=== PATIENT | male | born 1950 | race Caucasian/White ===

== ENCOUNTER 2017-01-23 20:02 | Inpatient (IN) | payer MEDICARE ==
[~2017-01-23] VITALS: Ht 180.3 cm; Wt 62.8 kg
[~2017-01-23 20:02] MED LIST: AMIO200T PO; DIVA500T3 PO; METF1000 PO; METO1TAB43 PO; METO1TAB9 PO; OXYB5TAB PO; PRAV40TA2 PO; QUET400T PO; RISP3TAB2 PO; SITA50 PO
[2017-01-23 20:15] VITALS: BP 117/65; PULSE 115; RESP 20; TEMP 98.6; O2SAT 99
[2017-01-23 20:30] VITALS: BP 135/69; PULSE 116; RESP 24; TEMP 98; O2SAT 99
--- NOTE | 2017-01-23 20:41 | PD ---
HPI Chief Complaint: Cardiac Complaint Time Seen by Provider: 20:33 Travel History International Travel<30 days: No Contact w/Intl Traveler<30days: No Traveled to known affect area: No History of Present Illness HPI 66 year-old male presents to the emergency department by EMS transport after bystander 911 call. Patient here reports hearing voices and hearing the devil. Patient does not not report any specific directives from the voices. Patient has history of schizoaffective disorder, diabetes, tobaccoism, alcohol use and seizure disorder. Patient here is currently voicing no concerns or complaints requesting a diet Coke. In triage patient was noted to have a rapid irregular heartbeat with no identified known medical history. Patient rates his chest pain 0-2/10 in intensity but denies it being present at this time. PFSH Past Medical History Narrative Medical Schizoaffective disorder hypertension diabetes bipolar disorder seizure alcohol use tobacco use; nursing notes reviewed Blood Disorders: No Bipolar Disorder: Yes ("WAY IN THE PAST - BUT MY [place] IN GOD WILL HEAL ME") Anxiety: Yes Depression: Yes Heart Rhythm Problems: No Cancer: No Cardiovascular Problems: No High Cholesterol: No Chest Pain: No Congestive Heart Failure: No Diabetes: Yes (NON INSULIN DEPENDENT) Patient Takes Glucophage: No Diminished Hearing: Yes (LEFT IS DEAF BUT HE BELIEVES [facility]IS[place] IS ABOUT TO HEAL IT SOON) Gastrointestinal Disorders: No Genitourinary: No Hypertension: Yes Immune Disorder: No Musculoskeletal: No Neurologic: No Psychiatric: Yes Reproductive: No Respiratory: No Schizophrenia: Yes (SAYS "YES BUT I DON'T THINK IT'S MUCH. 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") Substance Use: No Allergies-Medications (Allergen,Severity, Reaction): Coded Allergies: haloperidol (Unverified Allergy, Severe, 01/23/17) UNKNOWN hydroxyzine (Unverified Allergy, Severe, 01/23/17) UNKNOWN Reported Meds & Prescriptions Reported Meds & Active Scripts Active Metoprolol Succinate ER 24 HR (Metoprolol Succinate) 50 Mg Tab 100 Mg PO DAILY 30 Days Amiodarone (Amiodarone HCl) 200 Mg Tab 200 Mg PO DAILY 30 Days Amiodarone (Amiodarone HCl) 200 Mg Tab 400 Mg PO Q12HR 5 Days Reported Risperidone 3 Mg Tab 3 Mg PO Q12HR Quetiapine (Quetiapine Fumarate) 400 Mg Tab 400 Mg PO HS Pravastatin 40 Mg Tab 40 Mg PO DAILY Oxybutynin ER 24 HR (Oxybutynin Chloride) 5 Mg Tab 5 Mg PO DAILY Metoprolol Succinate ER 24 HR (Metoprolol Succinate) 100 Mg Tab 150 Mg PO DAILY Metformin (Metformin HCl) 1,000 Mg Tab 1,000 Mg PO BIDPC With meals Januvia (Sitagliptin Phosphate) 50 Mg Tab 50 Mg PO DAILY Divalproex ER (Divalproex Sodium) 500 Mg Tab 1,000 Mg PO DAILY Review of Systems Except as stated in HPI: all other systems reviewed are Neg General / Constitutional: No: Fever HENT: No: Congestion Cardiovascular: Positive: Chest Pain or Discomfort (in the twinkle of an eye pain "the devil") Respiratory: No: Shortness of Breath Gastrointestinal: No: Vomiting, Abdominal Pain Genitourinary: No: Flank Pain Musculoskeletal: No: Pain Psychiatric: Positive: Disorder of Thought Physical Exam Narrative GENERAL: Well-developed disheveled male in no acute distress no respiratory distress SKIN: Warm and dry. HEAD: Normocephalic. Atraumatic no scalp soft tissue swelling abrasion or tenderness no bony step-off. EYES: No scleral icterus. No injection or drainage. NECK: Supple, trachea midline. No JVD or lymphadenopathy. CARDIOVASCULAR: Increased Regular rate and rhythm without murmurs, gallops, or rubs. RESPIRATORY: Breath sounds equal bilaterally. No accessory muscle use. GASTROINTESTINAL: Abdomen soft, non-tender, nondistended. MUSCULOSKELETAL: No cyanosis, or edema. BACK: Nontender without obvious deformity. No CVA tenderness. Data Data Last Documented VS Vital Signs Date Time Temp Pulse Resp B/P (MAP) Pulse Ox O2 Delivery O2 Flow Rate FiO2 01/23/17 21:08 100 18 137/78 (97) 98 Room Air 01/23/17 20:30 98.0 Orders Orders Complete Blood Count With Diff (01/23/17 20:33) Comprehensive Metabolic Panel (01/23/17 20:33) Thyroid Stimulating Hormone (01/23/17 20:33) Urinalysis - C+S If Indicated (01/23/17 20:33) Electrocardiogram (01/23/17 20:33) Oximetry (01/23/17 20:33) Iv Access Insert/Monitor (01/23/17 20:33) Ecg Monitoring (01/23/17 20:33) Psych Screen (01/23/17 20:33) Blood Glucose (01/23/17 20:33) Drug Screen, Random Urine (01/23/17 20:33) Alcohol (Ethanol) (01/23/17 20:33) Salicylates (Aspirin) (01/23/17 20:33) Tylenol (Acetaminophen) (01/23/17 20:33) Troponin I (01/23/17 20:33) Ckmb (Isoenzyme) Profile (01/23/17 20:33) Magnesium (Mg) (01/23/17 20:33) Chest, Single Ap (01/23/17 ) Labs Laboratory Tests Test 01/23/17 20:45 01/23/17 22:45 White Blood Count 8.6 TH/MM3 Red Blood Count 3.90 MIL/MM3 Hemoglobin 13.1 GM/DL Hematocrit 37.9 % Mean Corpuscular Volume 97.4 FL Mean Corpuscular Hemoglobin 33.5 PG Mean Corpuscular Hemoglobin Concent 34.4 % Red Cell Distribution Width 13.9 % Platelet Count 213 TH/MM3 Mean Platelet Volume 9.3 FL Neutrophils (%) (Auto) 67.9 % Lymphocytes (%) (Auto) 21.8 % Monocytes (%) (Auto) 8.5 % Eosinophils (%) (Auto) 1.4 % Basophils (%) (Auto) 0.4 % Neutrophils # (Auto) 5.8 TH/MM3 Lymphocytes # (Auto) 1.9 TH/MM3 Monocytes # (Auto) 0.7 TH/MM3 Eosinophils # (Auto) 0.1 TH/MM3 Basophils # (Auto) 0.0 TH/MM3 CBC Comment DIFF FINAL Differential Comment Blood Urea Nitrogen 19 MG/DL Creatinine 1.00 MG/DL Random Glucose 149 MG/DL Total Protein 7.5 GM/DL Albumin 3.7 GM/DL Calcium Level 9.7 MG/DL Magnesium Level 1.8 MG/DL Alkaline Phosphatase 81 U/L Aspartate Amino Transf (AST/SGOT) 5 U/L Alanine Aminotransferase (ALT/SGPT) 14 U/L Total Bilirubin 0.3 MG/DL Sodium Level 139 MEQ/L Potassium Level 4.1 MEQ/L Chloride Level 107 MEQ/L Carbon Dioxide Level 24.1 MEQ/L Anion Gap 8 MEQ/L Estimat Glomerular Filtration Rate 74 ML/MIN Total Creatine Kinase 51 U/L Troponin I LESS THAN 0.02 NG/ML Thyroid Stimulating Hormone 3rd Gen 1.460 uIU/ML Salicylates Level 4.7 MG/DL Acetaminophen Level LESS THAN 2.0 MCG/ML Ethyl Alcohol Level LESS THAN 3 MG/DL MDM Medical Decision Making Medical Screen Exam Complete: Yes Emergency Medical Condition: Yes Medical Record Reviewed: Yes Interpretation(s) EKG: Sinus tachycardia rate [address] elevation or injury pattern Last Impressions Chest X-Ray 01/23/17 0000 Signed Impressions: Service Date/Time: Monday, January 23, 2017 21:50 - CONCLUSION: No acute disease. Jon Pablo MD CBC & BMP Diagram 01/23/17 20:45 Total Protein 7.5, Albumin 3.7, Calcium Level 9.7, Magnesium Level 1.8, Alkaline Phosphatase 81, Aspartate Amino Transf (AST/SGOT) 5 L, Alanine Aminotransferase (ALT/SGPT) 14, Total Bilirubin 0.3 Vital Signs Date Time Temp Pulse Resp B/P (MAP) Pulse Ox O2 Delivery O2 Flow Rate FiO2 01/23/17 21:08 100 18 137/78 (97) 98 Room Air 01/23/17 20:58 99 Room Air 01/23/17 20:30 98.0 116 24 135/69 (91) 99 Room Air 01/23/17 20:15 98.6 115 20 117/65 (82) 99 tsh: 1.460 Troponin I: less than 0.02, not elevated Differential Diagnosis Mood disorder bipolar disorder schizoaffective disorder atypical chest pain [facility] [place] electrolyte disturbance glucose disturbance Narrative Course Patient placed on chair and pulse oximeter with IV access obtained EKG performed which reveals sinus tachycardia with occasional PVC with no acute ST elevation or injury pattern or ectopy noted Patient with visual and auditory hallucinations concerned about seeing devil and the devil being in his chest; patient with history of schizoaffective disorder by review of medical record; Epps act signed by id Lab values grossly normal range patient's vital signs have improved patient given bolus of normal saline patient is medically cleared for psych screen Physician Communication Physician Communication medically cleared for psych evaluation Diagnosis Primary Impression: Auditory hallucinations Additional Impression: H/O schizophrenia Estela Noyola MD Jan 23, 2017 20:41
[2017-01-23 20:58] VITALS: O2SAT 99
[2017-01-23 21:08] VITALS: BP 137/78; PULSE 100; RESP 18; O2SAT 98
[2017-01-23 21:23] LABS: AUTOMATED NEUTROPHIL # 5.8 TH/MM3 (1.8-7.7); BASOPHIL % 0.4 % (0.0-2.0); EOSINOPHIL # 0.1 TH/MM3 (0-0.4); EOSINOPHIL % 1.4 % (0.0-4.0); HEMATOCRIT 37.9 % (39.0-51.0); HEMO FLAGS DIFF FINAL; LYMPH % 21.8 % (9.0-44.0); LYMPHOCYTE # 1.9 TH/MM3 (1.0-4.8); MEAN CELL VOLUME 97.4 FL (80.0-100.0); MEAN CORPUSCULAR HEMOGLOBIN 33.5 PG (27.0-34.0); MEAN CORPUSCULAR HGB CONC 34.4 % (32.0-36.0); MONO % 8.5 % (0.0-8.0); NEUT % 67.9 % (16.0-70.0); PLATELET COUNT 213 TH/MM3 (150-450); RED CELL DISTRIBUTION WIDTH 13.9 % (11.6-17.2); WHITE BLOOD COUNT 8.6 TH/MM3 (4.0-11.0)
[2017-01-23 21:48] LABS: ALT (GPT) 14 U/L (12-78); ANION GAP 8 MEQ/L (5-15); AST (GOT) 5 U/L (15-37); BICARBONATE 24.1 MEQ/L (21.0-32.0); BLOOD UREA NITROGEN 19 MG/DL (7-18); CHLORIDE 107 MEQ/L (98-107); GLOMERULAR FILTRATION RATE 74 ML/MIN (>89); MAGNESIUM 1.8 MG/DL (1.5-2.5); POTASSIUM 4.1 MEQ/L (3.5-5.1); SODIUM (NA) 139 MEQ/L (136-145)
[2017-01-23 21:49] LABS: ALCOHOL LESS THAN 3 MG/DL (0-5)
[2017-01-23 21:57] LABS: ALKALINE PHOSPHATASE 81 U/L (45-117); TOTAL BILIRUBIN ADULT 0.3 MG/DL (0.2-1.0)
[2017-01-23 21:58] LABS: ACETAMINOPHEN LESS THAN 2.0 MCG/ML (10.0-30.0); CREATINE KINASE 51 U/L (39-308)
--- NOTE | 2017-01-23 22:40 | RADRPT ---
EXAM DATE/TIME: 01/23/2017 21:50 [facility] COMPARISON: No previous studies available for comparison. INDICATIONS : Chest pain. MEDICAL HISTORY : None. SURGICAL HISTORY : None. ENCOUNTER: Initial ACUITY: 1 day PAIN SCORE: 6/10 LOCATION: Bilateral chest FINDINGS: The heart size is normal. The lungs are clear. There is an old right fifth rib fracture. No effusion is seen. CONCLUSION: No acute disease. Jon Pablo MD on January 23, 2017 at 22:37 Board Certified Radiologist. This report was verified electronically.
[2017-01-23] MEDS ORDERED: SODIUM CHLOR 0.9% 1000 ML INJ 1,000 ML IV ONE (23:00)
[2017-01-23 23:04] LABS: BLOOD, URINE NEG (NEG); COMMENT (UR) CULT NOT INDICATED; CULTURE IF INDICATED CULT NOT INDICATED; GLUCOSE,URINE 150 mg/dL (NEG); HYALINE CAST, URINE 1 /lpf (RARE); KETONE, URINE NEG (NEG); MUCUS URINE FEW /lpf (OCC); NITRITE,URINE NEG (NEG); PH, URINE 5.5 (5.0-8.5); URINE COLOR YELLOW (YELLW/STRAW)
[2017-01-23 23:38] VITALS: BP 144/71; PULSE 101; RESP 20; TEMP 97.8; O2SAT 96
[2017-01-24 02:01] VITALS: BP 140/63; PULSE 90; RESP 18; O2SAT 100
[2017-01-24 06:00] VITALS: BP 106/71; PULSE 99; RESP 17; O2SAT 100
[2017-01-24 12:13] VITALS: BP 130/67; PULSE 85; RESP 18; O2SAT 99
[2017-01-24] MEDS ORDERED: ARIP2 PO (15:24)
[2017-01-24] MEDS ORDERED: ACETAMINOPHEN 325 MG TAB PO PRN (15:30)
[2017-01-24] MEDS ORDERED: ALUMINUM/MAGNESIUM/SIMETH 30 ML CUP PO PRN (15:30)
[2017-01-24] MEDS ORDERED: diphenhydrAMINE HCL 50 MG CAP PO PRN (15:30)
[2017-01-24] MEDS ORDERED: MAGNESIUM HYDROXIDE SUSP 30 ML CUP PO PRN (15:30)
[2017-01-24] MEDS ORDERED: diphenhydrAMINE HCL 50 MG/ML VIAL IM PRN (15:30)
[2017-01-24] MEDS ORDERED: LORazepam 1 MG TAB PO PRN (15:30)
[2017-01-24] MEDS ORDERED: LORazepam 2 MG/ML VIAL IM PRN (15:30)
--- NOTE | 2017-01-24 15:37 | HHI.HP ---
Provisional Diagnosis Admission Date Jan 24, 2017 at 15:19 [place] I. Schizoaffective disorder, depressed type Certification of Person's Competence To Provide Express and Informed Consent I have personally examined Pritesh Mccracken , a person being served at [facility] on, Jan 24, 2017 15:26. Express and informed consent means consent voluntarily given in writing, by a competent person, after sufficient explanation and disclosure of the subject matter involved to enable the person to make a knowing and willful decision without any element of force, fraud, deceit, duress, or other form of constraint or coercion. This person is 18 years of age or older, is not now known to be incompetent to consent to treatment with a guardian advocate, and does not have a health care surrogate or proxy currently making medical treatment decisions. I have found this person to be one of the following: [] Competent to provide express and informed consent, as defined above, for voluntary admission to this facility and is competent to provide express and informed consent for treatment. He/she has the consistent capacity to make well reasoned, willful, and knowing decisions concerning his or her medical or mental health treatment. The person fully and consistently understands the purpose of the admission for examination/placement and is fully capable of personally exercising all rights assured [place] [X] Incompetent to provide express and informed consent to voluntary admission, and this is incompetent to provide express and informed consent to treatment. The person must be transferred to involuntary status and a petition for a guardian advocate filed with the Circuit Court. [] Refusing to provide express and informed consent to voluntary admission but is competent to provide express and informed consent for treatment. The person must be discharged or transferred to involuntary status. Form shall be completed within 24 hours of a person's arrival at the receiving facility and filed in the clinical record of each person: 1. Admitted on a voluntary basis 2. Permitted to provide express and informed consent to his/her own treatment 3. Allowed to transfer from involuntary to voluntary status 4. Prior to permitting a person to consent to his or her own treatment after having been previously found incompetent to consent to treatment. History of Present Illness Capacity: Lacks Capacity HPI 66-year-old male presents under a Epps act for reported auditory hallucinations , visual hallucinations, delusional thinking, multiple medical problems and inability to care for self. According to the Epps act, the patient has been hearing voices and feels the devil is in his chest. He describes both auditory and visual hallucinations, although is disorganized, currently responding to internal stimuli, and therefore is a poor historian. He was Epps acted by one of our own emergency department attending physicians. Upon interview, the patient admits to being very anxious. He has a difficult time answering questions because he is distracted by at least auditory hallucinations if not also visual hallucinations. He admits to having the devil inside of him. He admits to seeing things although he cannot or will not describe what he sees. He admits to auditory hallucinations, although he is again unable to describe details of what he hears. He continues to exhibit loose associations. He is able to name some of his psychotropic and nonpsychotropic medicines and admits that he has not been taking his medicines as prescribed. He has a history of multiple medical problems and therefore his lack of self-care is imminently jeopardizing his physical health. He is unable to answer questions about suicide and homicide at this time. His toxicology screen is noted to be negative. Review of Systems Psychiatric: COMPLAINS OF: Anxiety, Confusion, Depression, Hallucinations, Delusions Except as stated in HPI: all other systems reviewed are Neg Past Psych History Psychological trauma history Previously diagnosed with schizoaffective disorder. Unable to determine any history of psychological trauma. Violence risk - others (6 mos) Moderate to high. Violence risk - self (6 mos) Moderate to high. Substance Abuse History Drugs/Alcohol past 12 months Denied. Past Family Social History Coded Allergies: haloperidol (Unverified Allergy, Severe, 01/23/17) UNKNOWN hydroxyzine (Unverified Allergy, Severe, 01/23/17) UNKNOWN Active Scripts Aripiprazole (Abilify) 2 Mg Tab, 2 MG PO DAILY, #30 TAB 0 Refills Prov:Prakash Carranza MD 01/24/17 Metoprolol Succinate ER 24 HR (Metoprolol Succinate ER 24 HR) 50 Mg Tab, 100 MG PO DAILY for heart rhythm for 30 Days, TAB Prov:Chyna Ann 01/28/16 Amiodarone (Amiodarone) 200 Mg Tab, 200 MG PO DAILY for heart rhythm for 30 Days , TAB Prov:Chyna Ann 01/28/16 Amiodarone (Amiodarone) 200 Mg Tab, 400 MG PO Q12HR for heart rhythm for 5 Days , TAB Prov:Chyna Ann 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 01/28/16 Reported Medications Risperidone (Risperidone) 3 Mg Tab, 3 MG PO Q12HR, TAB 0 Refills 01/27/16 Quetiapine (Quetiapine) 400 Mg Tab, 400 MG PO HS, TAB 0 Refills 01/27/16 Pravastatin (Pravastatin) 40 Mg Tab, 40 MG PO DAILY for Cholesterol Management, TAB 0 Refills 01/27/16 Oxybutynin ER 24 HR (Oxybutynin ER 24 HR) 5 Mg Tab, 5 MG PO DAILY for Overactive Bladder, TAB 0 Refills 01/27/16 Metoprolol Succinate ER 24 HR (Metoprolol Succinate ER 24 HR) 100 Mg Tab, 150 MG PO DAILY, TAB 0 Refills 01/27/16 Metformin (Metformin) 1,000 Mg Tab, 1000 MG PO BIDPC for Blood Sugar Management , TAB 0 Refills With meals 01/27/16 Sitagliptin (Januvia) 50 Mg Tab, 50 MG PO DAILY for Blood Sugar Management, TAB 0 Refills 01/27/16 Divalproex ER (Divalproex ER) 500 Mg Tab, 1000 MG PO DAILY for Control Seizures , TAB 0 Refills 01/27/16 Current Medications Medications (Trade) Dose Ordered Sig/Sanna Route Start Time Stop Time Status Last Admin (Ativan) 1 mg Q6H PRN PO 01/24/17 15:30 UNV (Ativan Inj) 1 mg Q6H PRN IM 01/24/17 15:30 UNV (Benadryl) 50 mg HS PRN PO 01/24/17 15:30 UNV (Benadryl Inj) 50 mg HS PRN IM 01/24/17 15:30 UNV (Tylenol) 650 mg Q4H PRN PO 01/24/17 15:30 UNV (Milk Of Magnesia Liq) 30 ml DAILY PRN PO 01/24/17 15:30 UNV (Mag-Al Plus Susp Liq) 30 ml Q6H PRN PO 01/24/17 15:30 UNV Family Psych History Unknown family psychiatric history. Patient is a poor historian. Social History Patient currently describes himself as homeless. He is dirty, disheveled, very thin and shaky. He is denying any drug or alcohol use. He is obviously unemployed. He is obviously unable to care for himself. Patient does apparently have family members who do not feel capable of caring for him. Patient's Strengths (min. 2) Verbal has access to healthcare. Physical Exam GENERAL: SKIN: Warm and dry. HEAD: Normocephalic. EYES: No scleral icterus. No injection or drainage. NECK: Supple, trachea midline. No JVD or lymphadenopathy. CARDIOVASCULAR: Regular rate and rhythm without murmurs, gallops, or rubs. RESPIRATORY: Breath sounds equal bilaterally. No accessory muscle use. GASTROINTESTINAL: Abdomen soft, non-tender, nondistended. MUSCULOSKELETAL: No cyanosis, or edema. BACK: Nontender without obvious deformity. No CVA tenderness. Vital Signs Vital Signs Date Time Temp Pulse Resp B/P (MAP) Pulse Ox O2 Delivery O2 Flow Rate FiO2 01/24/17 12:13 85 18 130/67 (88) 99 Room Air 01/23/17 23:38 97.8 Lab Results Test 01/23/17 20:45 01/23/17 22:45 White Blood Count 8.6 TH/MM3 Red Blood Count 3.90 MIL/MM3 Hemoglobin 13.1 GM/DL Hematocrit 37.9 % Mean Corpuscular Volume 97.4 FL Mean Corpuscular Hemoglobin 33.5 PG Mean Corpuscular Hemoglobin Concent 34.4 % Red Cell Distribution Width 13.9 % Platelet Count 213 TH/MM3 Mean Platelet Volume 9.3 FL Neutrophils (%) (Auto) 67.9 % Lymphocytes (%) (Auto) 21.8 % Monocytes (%) (Auto) 8.5 % Eosinophils (%) (Auto) 1.4 % Basophils (%) (Auto) 0.4 % Neutrophils # (Auto) 5.8 TH/MM3 Lymphocytes # (Auto) 1.9 TH/MM3 Monocytes # (Auto) 0.7 TH/MM3 Eosinophils # (Auto) 0.1 TH/MM3 Basophils # (Auto) 0.0 TH/MM3 CBC Comment DIFF FINAL Differential Comment Blood Urea Nitrogen 19 MG/DL Creatinine 1.00 MG/DL Random Glucose 149 MG/DL Total Protein 7.5 GM/DL Albumin 3.7 GM/DL Calcium Level 9.7 MG/DL Magnesium Level 1.8 MG/DL Alkaline Phosphatase 81 U/L Aspartate Amino Transf (AST/SGOT) 5 U/L Alanine Aminotransferase (ALT/SGPT) 14 U/L Total Bilirubin 0.3 MG/DL Sodium Level 139 MEQ/L Potassium Level 4.1 MEQ/L Chloride Level 107 MEQ/L Carbon Dioxide Level 24.1 MEQ/L Anion Gap 8 MEQ/L Estimat Glomerular Filtration Rate 74 ML/MIN Total Creatine Kinase 51 U/L Troponin I LESS THAN 0.02 NG/ML Thyroid Stimulating Hormone 3rd Gen 1.460 uIU/ML Salicylates Level 4.7 MG/DL Acetaminophen Level LESS THAN 2.0 MCG/ML Ethyl Alcohol Level LESS THAN 3 MG/DL Urine Color YELLOW Urine Turbidity CLEAR Urine pH 5.5 Urine Specific [place] 1.015 Urine Protein NEG mg/dL Urine Glucose (UA) 150 mg/dL Urine Ketones NEG mg/dL Urine Occult Blood NEG Urine Nitrite NEG Urine Bilirubin NEG Urine Urobilinogen LESS THAN 2.0 MG/DL Urine Leukocyte Esterase NEG Urine RBC 1 /hpf Urine WBC LESS THAN 1 /hpf Urine Hyaline Casts 1 /lpf Urine Mucus FEW /lpf Microscopic Urinalysis Comment CULT NOT INDICATED Urine Opiates Screen NEG Urine Barbiturates Screen NEG Urine Amphetamines Screen NEG Urine Benzodiazepines Screen NEG Urine Cocaine Screen NEG Urine Cannabinoids Screen NEG Mental Status Examination Appearance: Disheveled Consciousness: Highly Distractible Orientation: Person Motor Activity: Abnormal gait Speech: Hesitant Language: Adequate Fund of Knowledge: Inadequate Attention and Concentration: Easily Distracted Memory: Impaired Mood: Sad, Anxious Affect: Flat Thought Process & Associations: Loose associations Thought Content: Bizarre thinking, Hallucinations, Thought blocking, Delusional Hallucination Type: Auditory, Visual Delusion Type: Bizarre, Paranoid Suicidal Ideation: No Suicidal Plan: No Suicidal Intention: No Homicidal Ideation: No Homicidal Plan: No Homicidal Intention: No Insight: Poor Judgment: Poor Assessment & Plan Problem List: (1) Schizoaffective disorder, depressive type ICD Codes: F25.1 - Schizoaffective disorder, depressive type Assessment & Plan Estimated LOS: days. 66-year-old male presents under a Epps act with multiple psychotic symptoms, history of schizoaffective disorder, multiple medical issues, obvious inability to care for self, actively hallucinating, and beyond the families ability to care for him. For these reasons he is being admitted for further evaluation and treatment. This physician has ordered a CBC and comprehensive metabolic panel to determine if any infectious process or metabolic process is causing or contributing to the patient's confusion and psychosis. This physician is also concerned about the patient's prolactin level and this is being drawn as the patient is on 6 mg of Risperdal per day. This physician is also ordering a Depakote level as the patient is supposed to be taking this medicine routinely to help stabilize his mood/mental illness. Furthermore, this physician has ordered a hospitalist consult to assist with the evaluation of the patient's multiple cardiovascular problems. This physician ordered an EKG to determine the patient's cardiac conduction status prior to substantially altering medicines which might adversely affect the electrical system of his heart. This physician ordered thyroid stimulating hormone level, vitamin B-12 level and vitamin D level, as deficiencies in these areas may cause or contribute to the patient's confusion and psychosis. Finally, this physician spoke with the patient's nurse, Gus, regarding the patient's recent behavior. Case management will also be involved to assist with information gathering and disposition planning. Prakash Carranza MD Jan 24, 2017 15:37
[2017-01-24] MEDS: DIVALPROEX SODIUM E.R. 500 MG TAB PO SCH (16:03)
[2017-01-24 17:04] VITALS: BP 129/80; PULSE 99; RESP 16; TEMP 98.2; O2SAT 99
[2017-01-24] MEDS: metFORMIN HCL 500 MG TAB PO SCH (17:05)
--- NOTE | 2017-01-24 18:18 | EKG ---
Date Performed: 01/23/2017 Time Performed: 20:27:22 PTAGE: 66 years EKG: SINUS TACHYCARDIA WITH OCCASIONAL VENTRICULAR PREMATURE COMPLEXES WITH OCCASIONAL SUPRAVENT RICULAR PREMATURE COMPLEXES Compared to previous tracing, ectopy is now present ABNORMAL RHYTHM ECG PREVIOUS TRACING : 01/28/2016 05.44 DOCTOR: Nacho Escalera Interpretating Date/Time 01/24/2017 18:16:38
[2017-01-24] MEDS ORDERED: DEXTROSE 50% IN WATER 50 ML VIAL(D50) IV PUSH PRN (20:45)
[2017-01-24] MEDS ORDERED: GLUCAGON 1 MG/ML VIAL OTHER PRN (20:45)
[2017-01-24] MEDS ORDERED: ARIPiprazole 2 MG TAB PO SCH (21:00)
[2017-01-24] MEDS: QUEtiapine FUMARATE 200 MG TAB PO SCH (21:49)
[2017-01-24] MEDS: AMIODARONE 200 MG TAB PO SCH (22:53)
[2017-01-25] MEDS ORDERED: GLUCAGON 1 MG/ML VIAL OTHER PRN (08:00)
[2017-01-25] MEDS ORDERED: DEXTROSE 50% IN WATER 50 ML VIAL(D50) IV PUSH PRN (08:00)
[2017-01-25] MEDS: INSULIN ASPART SUPPLEMENTAL SCALE SQ SCH ×4 (08:00→21:00)
[2017-01-25] MEDS ORDERED: METOPROLOL SUCCINATE 50 MG EXTENDED RELEASE TAB PO SCH (09:00)
[2017-01-25] MEDS: DIVALPROEX SODIUM E.R. 500 MG TAB PO SCH (09:00)
[2017-01-25] MEDS: PRAVASTATIN SOD 40 MG TAB PO SCH (09:01)
[2017-01-25] MEDS: metFORMIN HCL 500 MG TAB PO SCH ×2 (09:01→18:08)
[2017-01-25] MEDS: TOLTERODINE TARTRATE 2 MG CAP LA PO SCH (09:02)
[2017-01-25] MEDS: AMIODARONE 200 MG TAB PO SCH ×2 (09:02→21:05)
[2017-01-25] MEDS: METOPROLOL SUCCINATE 50 MG EXTENDED RELEASE TAB PO SCH (09:03)
--- NOTE | 2017-01-25 10:30 | HHI.PYPN ---
Subjective Remarks Patient seen in his room with counselor Ladonna and RN. Patient laying very still in bed very poor eye contact with minimal responses to verbal questioning. Appears to be responding to internal stimuli. Is also a significant expression of anxiety and guardedness. Patient refusing to answer questions related to either auditory or visual hallucinations. Patient is initially seen by Dr. Prakash Carranza his initial psych evaluation reviewed and agreed with. I have completed the initial psychiatric template. Dr. Carranza's sign first opinion petition supporting [place] act I agree patient does meet criteria for involuntary psychiatric hospitalization thus will cosign second opinion petition supporting [place] act I have reviewed patient's medication his Depakote level is 69 on admission we'll continue that no change at this time. We will change patient's Abilify to 5 mg in the morning starting at 11 AM today. Continue other medications no change Review of Systems ROS Limitations: Clinical Condition, Altered Mental Status Mental Status Examination Appearance: Disheveled Consciousness: Highly Distractible Orientation: Person Motor Activity: Abnormal gait Speech: Hesitant, Other (marked thought blocking bordering on selectively mute) Language: Other (difficult to ascertain due to patient's thought blocking and minimal verbal response) Fund of Knowledge: Inadequate Attention and Concentration: Easily Distracted Memory: Impaired Mood: Sad, Anxious Affect: Flat Thought Process & Associations: Loose associations Thought Content: Bizarre thinking, Hallucinations, Thought blocking, Delusional Hallucination Type: Auditory, Visual Delusion Type: Bizarre, Paranoid Suicidal Ideation: No Suicidal Plan: No Suicidal Intention: No Homicidal Ideation: No Homicidal Plan: No Homicidal Intention: No Insight: Poor Judgment: Poor Results Labs Test 01/24/17 19:24 Valproic Acid (Depakene) Level 69 MCG/ML Vitals/IOs Vital Signs Date Time Temp Pulse Resp B/P (MAP) Pulse Ox O2 Delivery O2 Flow Rate FiO2 01/24/17 17:04 98.2 99 16 129/80 (96) 99 01/24/17 12:13 Room Air Assessment & Plan Problem List: (1) Schizoaffective disorder, depressive type ICD Codes: F25.1 - Schizoaffective disorder, depressive type Assessment & Plan Estimated LOS: day patient psychotic with significant thought blocking bordering on selectively mute. She medication adjustments above. Dr. Carranza is also initiated first opinion petition supporting [place] act. I agree. Patient meets criteria for involuntary psychiatric hospitalization thus will cosign second opinion petition supporting Epps act Justification for Cont. Inpt. At this time patient will decompensate with placed in a lower level of care Discharge Planning Need further information and input from patient's family about possible placement issues Request HC Surrog/Guard Advoc?: Yes Jon Donato MD Jan 25, 2017 10:30
[2017-01-25 12:27] LABS: AUTOMATED NEUTROPHIL # 4.3 TH/MM3 (1.8-7.7); BASOPHIL % 0.5 % (0.0-2.0); EOSINOPHIL # 0.1 TH/MM3 (0-0.4); EOSINOPHIL % 1.7 % (0.0-4.0); HEMATOCRIT 34.9 % (39.0-51.0); HEMO FLAGS DIFF FINAL; LYMPH % 24.1 % (9.0-44.0); LYMPHOCYTE # 1.6 TH/MM3 (1.0-4.8); MEAN CELL VOLUME 97.2 FL (80.0-100.0); MONO % 9.4 % (0.0-8.0); NEUT % 64.3 % (16.0-70.0); PLATELET COUNT 200 TH/MM3 (150-450); RED BLOOD COUNT 3.59 MIL/MM3 (4.50-5.90); RED CELL DISTRIBUTION WIDTH 13.9 % (11.6-17.2); WHITE BLOOD COUNT 6.6 TH/MM3 (4.0-11.0)
[2017-01-25 12:39] LABS: ANION GAP 5 MEQ/L (5-15); AST (GOT) 6 U/L (15-37); BICARBONATE 26.4 MEQ/L (21.0-32.0); BLOOD UREA NITROGEN 21 MG/DL (7-18); CHLORIDE 107 MEQ/L (98-107); GLOMERULAR FILTRATION RATE 73 ML/MIN (>89); POTASSIUM 4.8 MEQ/L (3.5-5.1); SODIUM (NA) 138 MEQ/L (136-145)
[2017-01-25 12:41] LABS: ALT (GPT) 13 U/L (12-78)
[2017-01-25 13:06] LABS: ALKALINE PHOSPHATASE 69 U/L (45-117); HDL CHOLESTEROL 59.8 MG/DL (40.0-60.0); LDL CHOLESTEROL 55 MG/DL (0-99); TOTAL BILIRUBIN ADULT 0.2 MG/DL (0.2-1.0)
[2017-01-25] MEDS: ARIPiprazole 5 MG TAB PO SCH (13:08)
[2017-01-25 13:56] LABS: HEMOGLOBIN A1a 1.2 %; HEMOGLOBIN Ao 83.9 %; HEMOGLOBIN LA1C 2.2 %; HEMOGLOBIN P3 4.2 %
--- NOTE | 2017-01-25 14:50 | PD.CONS ---
HPI Service [facility] Consult Requested By Psychiatric services Reason for Consult Medical management Primary Care Physician Niranjan Cunha M.D. Diagnoses: History of Present Illness Written by Wendy Ackerman, acting as scribe for Dr. Shirley on 01/25/17 at 14: 32. This is a 66-year-old male with a past medical history significant for atrial fibrillation status post ablation 01/28/16, hypertension, diabetes, dyslipidemia , seizure disorder and bipolar disorder, schizoaffective disorder who is admitted to inpatient psychiatry under [place] act for visual and auditory hallucinations concerning the devil and believing the devil was in his chest who has been asked to be seen in consultation by the medicine team for medical management. Patient seen and examined. Patient states he has occasional lightheadedness. Otherwise he denies any acute medical complaints. Denies any fever, chills, headache, numbness, tingling, weakness, nausea, vomiting, chest pain, shortness of breath or abdominal pain. Review of Systems Except as stated in HPI: all other systems reviewed are Neg Past Family Social History Allergies: Coded Allergies: haloperidol (Unverified Allergy, Severe, 01/23/17) UNKNOWN hydroxyzine (Unverified Allergy, Severe, 01/23/17) UNKNOWN Past Medical History Atrial fibrillation status post ablation 01/28/16 Hypertension Diabetes Dyslipidemia Seizure d/o Schizoaffective disorder Bipolar Past Surgical History Previous ablation for atrial fibrillation 01/28/16 Reported Medications Metoprolol Succinate ER 24 HR (Metoprolol Succinate) 50 Mg Tab 100 Mg PO DAILY 30 Days Amiodarone (Amiodarone HCl) 200 Mg Tab 200 Mg PO DAILY 30 Days Amiodarone (Amiodarone HCl) 200 Mg Tab 400 Mg PO Q12HR 5 Days Risperidone 3 Mg Tab 3 Mg PO Q12HR Quetiapine (Quetiapine Fumarate) 400 Mg Tab 400 Mg PO HS Pravastatin 40 Mg Tab 40 Mg PO DAILY Oxybutynin ER 24 HR (Oxybutynin Chloride) 5 Mg Tab 5 Mg PO DAILY Metoprolol Succinate ER 24 HR (Metoprolol Succinate) 100 Mg Tab 150 Mg PO DAILY Metformin (Metformin HCl) 1,000 Mg Tab 1,000 Mg PO BIDPC With meals Januvia (Sitagliptin Phosphate) 50 Mg Tab 50 Mg PO DAILY Divalproex ER (Divalproex Sodium) 500 Mg Tab 1,000 Mg PO DAILY Active Ordered Medications Current Medications Medications (Trade) Dose Ordered Sig/Sanna Route Start Time Stop Time Status Last Admin (Benadryl) 50 mg HS PRN PO 01/24/17 15:30 (Tylenol) 650 mg Q4H PRN PO 01/24/17 15:30 (Milk Of Magnesia Liq) 30 ml DAILY PRN PO 01/24/17 15:30 (Mag-Al Plus Susp Liq) 30 ml Q6H PRN PO 01/24/17 15:30 (Cordarone) 400 mg Q12HR PO 01/24/17 21:00 01/25/17 09:02 (Depakote Er) 1,000 mg DAILY PO 01/24/17 15:30 01/25/17 09:00 (Glucophage) 1,000 mg BIDPC PO 01/24/17 18:00 01/25/17 09:01 (Toprol Xl) 100 mg DAILY PO 01/25/17 09:00 01/25/17 09:03 (Pravachol) 40 mg DAILY PO 01/25/17 09:00 01/25/17 09:01 (Januvia) 50 mg DAILY PO 01/25/17 09:00 01/25/17 09:01 (Detrol La) 2 mg DAILY PO 01/25/17 09:00 01/25/17 09:02 (SEROquel) 400 mg HS PO 01/24/17 21:00 01/24/17 21:49 (D50w (Vial) Inj) 50 ml UNSCH PRN IV PUSH 01/25/17 08:00 (NovoLOG SUPPLEMENTAL SCALE) 1 ACHS SLIDING SCALE SQ 01/25/17 08:00 01/25/17 12:00 (Abilify) 5 mg DAILY PO 01/25/17 11:00 01/25/17 13:08 Family History Reviewed with patient, no significant family medical history reported Social History Patient has a history of tobacco use of one to 2 packs per day for 30+ years. He reports occasional alcohol use. He denies any illicit drug use. Physical Exam Vital Signs Vital Signs Date Time Temp Pulse Resp B/P (MAP) Pulse Ox O2 Delivery O2 Flow Rate FiO2 01/24/17 17:04 98.2 99 16 129/80 (96) 99 01/24/17 16:41 Physical Exam GENERAL: This is a thin, disheveled patient, in no apparent distress. Awake. Hard of hearing. SKIN: No rashes, ecchymoses or lesions. Cool and dry. HEAD: Atraumatic. Normocephalic. No temporal or scalp tenderness. EYES: Pupils equal round and reactive. Extraocular motions intact. No scleral icterus. No injection or drainage. ENT: Nose without bleeding or purulent drainage. Throat without erythema, tonsillar hypertrophy or exudate. Uvula midline. Airway patent. NECK: Trachea midline. No lymphadenopathy. Supple, nontender, no meningeal signs. CARDIOVASCULAR: Regular rate and rhythm without murmurs, gallops, or rubs. RESPIRATORY: Clear to auscultation. Breath sounds equal bilaterally. No wheezes , rales, or rhonchi. GASTROINTESTINAL: Abdomen soft, non-tender, nondistended. No hepato-splenomegaly , or palpable masses. No guarding. MUSCULOSKELETAL: Extremities without clubbing, cyanosis, or edema. No joint tenderness, effusion, or edema noted. No calf tenderness. NEUROLOGICAL: Awake and alert. Able to move all extremities spontaneously. No focal neurologic findings appreciated. Normal speech. Laboratory Laboratory Tests Test 01/24/17 19:24 01/25/17 10:45 01/25/17 11:35 Valproic Acid (Depakene) Level 69 White Blood Count 6.6 Red Blood Count 3.59 Hemoglobin 11.9 Hematocrit 34.9 Mean Corpuscular Volume 97.2 Mean Corpuscular Hemoglobin 33.0 Mean Corpuscular Hemoglobin Concent 34.0 Red Cell Distribution Width 13.9 Platelet Count 200 Mean Platelet Volume 8.7 Neutrophils (%) (Auto) 64.3 Lymphocytes (%) (Auto) 24.1 Monocytes (%) (Auto) 9.4 Eosinophils (%) (Auto) 1.7 Basophils (%) (Auto) 0.5 Neutrophils # (Auto) 4.3 Lymphocytes # (Auto) 1.6 Monocytes # (Auto) 0.6 Eosinophils # (Auto) 0.1 Basophils # (Auto) 0.0 CBC Comment DIFF FINAL Differential Comment Blood Urea Nitrogen 21 Creatinine 1.02 Random Glucose 84 Total Protein 6.7 Albumin 3.2 Calcium Level 9.4 Alkaline Phosphatase 69 Aspartate Amino Transf (AST/SGOT) 6 Alanine Aminotransferase (ALT/SGPT) 13 Total Bilirubin 0.2 Sodium Level 138 Potassium Level 4.8 Chloride Level 107 Carbon Dioxide Level 26.4 Anion Gap 5 Estimat Glomerular Filtration Rate 73 Hemoglobin A1c 6.0 Triglycerides Level 66 Cholesterol Level 128 LDL Cholesterol 55 HDL Cholesterol 59.8 Cholesterol/HDL Ratio 2.14 Vitamin B12 Level 368 25-Hydroxy Vitamin D Total 29.0 Thyroid Stimulating Hormone 3rd Gen 0.726 Result Diagram: 01/25/17 1045 01/25/17 1135 Imaging Last Impressions Chest X-Ray 01/23/17 0000 Signed Impressions: Service Date/Time: Monday, January 23, 2017 21:50 - CONCLUSION: No acute disease. oJn Pablo MD Assessment and Plan Assessment and Plan 66-year-old male with a past medical history significant for atrial fibrillation status post ablation 01/28/16, hypertension, diabetes, dyslipidemia , seizure disorder and bipolar disorder, schizoaffective disorder who is admitted to inpatient psychiatry under [employer] act for visual and auditory hallucinations concerning the devil and believing the devil was in his chest who has been asked to be seen in consultation by the medicine team for medical management. Schizoaffective disorder Bipolar disorder Psychosis with auditory and visual hallucinations, admitted under E[place] act - Management per psychiatric team Hypertension - Controlled - Continue patient on metoprolol XL 100 mg daily - Continue to monitor BP and adjust treatment accordingly Atrial fibrillation - s/p ablation 01/28/16 - resume patient on Amiodarone dose of 200mg daily - continue on home dose of metoprolol - continue to monitor HR DM - diabetic heart healthy diet - HgbA1c 6.0 - continue accucheck and ISS - BS 84 today. Hold home dose of Januvia and Metformin Seizure d/o - continue patient on Depakote ER 1000mg daily Dyslipidemia - continue patient on home dose of statin therapy DVT prophylaxis - patient is ambulatory Discussed Condition With Patient, nursing staff Wendy Ackerman Jan 25, 2017 14:49
[2017-01-25 18:00] VITALS: BP 113/64; PULSE 71; RESP 18; TEMP 97.7; O2SAT 99
[2017-01-25] MEDS: QUEtiapine FUMARATE 200 MG TAB PO SCH (21:05)
[2017-01-26 06:18] VITALS: BP 92/53; PULSE 68; RESP 17; TEMP 98.2; O2SAT 96
[2017-01-26] MEDS: INSULIN ASPART SUPPLEMENTAL SCALE SQ SCH ×4 (08:00→21:00)
[2017-01-26] MEDS: METOPROLOL SUCCINATE 50 MG EXTENDED RELEASE TAB PO SCH (09:00)
[2017-01-26] MEDS: TOLTERODINE TARTRATE 2 MG CAP LA PO SCH (09:00)
[2017-01-26] MEDS: PRAVASTATIN SOD 40 MG TAB PO SCH (09:00)
[2017-01-26] MEDS: AMIODARONE 200 MG TAB PO SCH (09:00)
[2017-01-26] MEDS: DIVALPROEX SODIUM E.R. 500 MG TAB PO SCH (09:00)
[2017-01-26] MEDS: ARIPiprazole 5 MG TAB PO SCH (09:00)
[2017-01-26] MEDS: CHOLECALCIFEROL (VIT D3) 1000 UNIT TAB PO SCH (09:00)
--- NOTE | 2017-01-26 09:10 | HHI.PR ---
Subjective Remarks Follow-up on patient with hypertension, atrial fibrillation, diabetes. Patient seen and examined. He reports some dizziness upon standing. He denies any headache. He denies any fever or chills. Denies any cough, chest pain or dyspnea. Denies any nausea, vomiting or abdominal pain. Objective Vitals Vital Signs Date Time Temp Pulse Resp B/P (MAP) Pulse Ox O2 Delivery O2 Flow Rate FiO2 01/26/17 06:18 98.2 68 17 92/53 (66) 96 01/25/17 18:00 97.7 71 18 113/64 (80) 99 Result Diagram: 01/25/17 1045 01/25/17 1135 Imaging Last Impressions Chest X-Ray 01/23/17 0000 Signed Impressions: Service Date/Time: Monday, January 23, 2017 21:50 - CONCLUSION: No acute disease. Jon Pablo MD Objective Remarks GENERAL: This is a thin, disheveled patient, in no apparent distress. Awake. Hard of hearing. Lying in hospital bed. SKIN: Warm and dry. HEAD: Atraumatic. Normocephalic. EYES: Extraocular motions intact. No scleral icterus. No injection or drainage. ENT: Nose without bleeding or purulent drainage. Airway patent. NECK: Trachea midline. CARDIOVASCULAR: Regular rate and rhythm without murmurs, gallops, or rubs. RESPIRATORY: Coarse breath sounds. No wheezes, rales, or rhonchi. GASTROINTESTINAL: Abdomen soft, non-tender, nondistended. No hepato-splenomegaly , or palpable masses. No guarding. MUSCULOSKELETAL: Extremities without clubbing, cyanosis, or edema. No calf tenderness. NEUROLOGICAL: Awake and alert. Able to move all extremities spontaneously. No focal neurologic findings appreciated. Normal speech. PSYCHIATRIC: Calm and pleasant. Cooperative. Medications and IVs Current Medications Medications (Trade) Dose Ordered Sig/Sanna Route Start Time Stop Time Status Last Admin (Benadryl) 50 mg HS PRN PO 01/24/17 15:30 (Tylenol) 650 mg Q4H PRN PO 01/24/17 15:30 (Milk Of Magnesia Liq) 30 ml DAILY PRN PO 01/24/17 15:30 (Mag-Al Plus Susp Liq) 30 ml Q6H PRN PO 01/24/17 15:30 (Cordarone) 400 mg Q12HR PO 01/24/17 21:00 01/25/17 21:05 (Depakote Er) 1,000 mg DAILY PO 01/24/17 15:30 01/25/17 09:00 (Glucophage) 1,000 mg BIDPC PO 01/24/17 18:00 Future Hold 01/25/17 18:08 (Toprol Xl) 100 mg DAILY PO 01/25/17 09:00 01/25/17 09:03 (Pravachol) 40 mg DAILY PO 01/25/17 09:00 01/25/17 09:01 (Januvia) 50 mg DAILY PO 01/25/17 09:00 Future Hold 01/25/17 09:01 (Detrol La) 2 mg DAILY PO 01/25/17 09:00 01/25/17 09:02 (SEROquel) 400 mg HS PO 01/24/17 21:00 01/25/17 21:05 (D50w (Vial) Inj) 50 ml UNSCH PRN IV PUSH 01/25/17 08:00 (NovoLOG SUPPLEMENTAL SCALE) 1 ACHS SLIDING SCALE SQ 01/25/17 08:00 01/25/17 12:00 (Abilify) 5 mg DAILY PO 01/25/17 11:00 01/25/17 13:08 (Vitamin D3) 1,000 units DAILY PO 01/26/17 09:00 A/P Assessment and Plan 66-year-old male with a past medical history significant for atrial fibrillation status post ablation 01/28/16, hypertension, diabetes, dyslipidemia , seizure disorder and bipolar disorder, schizoaffective disorder who is admitted to inpatient psychiatry under [place] act for visual and auditory hallucinations concerning the devil and believing the devil was in his chest who has been asked to be seen in consultation by the medicine team for medical management. Schizoaffective disorder Bipolar disorder Psychosis with auditory and visual hallucinations, admitted under [place] act - Management per psychiatric team - PT eval/tx Hypertension - now hypotensive, suspect medication side effect, check orthostatics, fall risk - Continue patient on metoprolol XL 100 mg daily with parameters - Continue to monitor BP and adjust treatment accordingly Atrial fibrillation - rate controlled - s/p ablation 01/28/16 - resume patient on Amiodarone dose 200mg daily - continue on home dose of metoprolol - continue to monitor HR DM - diabetic heart healthy diet - HgbA1c 6.0 - continue accucheck and ISS - blood sugars running low. Continue to hold home dose of Januvia and Metformin Suspect COPD Ongoing tobaccoism - discussed importance of cessation - Duonebs - continue to monitor respiratory status Seizure d/o - continue patient on Depakote ER 1000mg daily Dyslipidemia - continue patient on home dose of statin therapy Vitamin D deficiency - start on po vitamin D supplementation - patient will need to follow up with PCP as outpatient DVT prophylaxis - patient is ambulatory Discussed with patient, nursing staff and Wendy Webber Jan 26, 2017 09:10
[2017-01-26] MEDS ORDERED: RESP: ALBUTEROL 2.5 MG/IPRATROPIUM 0.5 MG NEB (PRN) NEB (11:30)
[2017-01-26] MEDS: RESP: ALBUTEROL 2.5 MG/IPRATROPIUM 0.5 MG NEB (SCH) NEB ×2 (14:00→20:00)
--- NOTE | 2017-01-26 15:42 | PD.TTN ---
Patient Problems 1. Discharge planning 2. Medication compliance 3. Knowledge deficit 4. Lack of coping skills Progress Toward Goals Provider Present: Dr. Wicho Donato Provider Input: Dr. Donato's treatment team met to discuss patient's treatment plan, medication, and discharge plan. Patient is new will access patient. Patient meets criteria Nurse(s) Input: Patient's nurse Shanon reports patient is delusional, suicidal with no plan, medication compliant Psychiatric Counselors Present: Ladonna Gray [facility] [address] Psych Therapist Input: Patient presents sad, depressed, seclusive, affect blunted. Patient states he feels suicidal, but denies homicidal.. Patient made fair eye contact. Patient's speech is clear, and pressured. Patient at this time meets criteria. Group Spec/RT/OT/PATRICK Present: DARNELL Perez Group Spec/RT/OT/PATRICK Input: Patient does not attend groups, seclusive to room. Ladonna [facility] Jan 26, 2017 15:41
--- NOTE | 2017-01-26 15:45 | PD.TTN ---
Patient Problems 1. Discharge planning 2. Medication compliance 3. Knowledge deficit 4. Lack of coping skills Progress Toward Goals Provider Present: Dr. Wicho Donato Provider Input: Dr. Donato's treatment team met to discuss patient's treatment plan, medication, and discharge plan. Patient is new will access patient. Patient meets criteria 01/26/17 Patient is doing better will be discharged to longterm. Nurse(s) Input: Patient's nurse Shanon reports patient is delusional, suicidal with no plan, medication compliant 01/26/17 Patient's nurse Gibson reports patient is doing well. Behaviors controlled, able to be redirected. Psychiatric Counselors Present: Ladonna Gray [facility] Psych Therapist Input: Patient presents sad, depressed, seclusive, affect blunted. Patient states he feels suicidal, but denies homicidal.. Patient made fair eye contact. Patient's speech is clear, and pressured. Patient at this time meets criteria. 01/26/17 Patient doing well. Patient denies suicidal and homicidal ideation. patient presents pleasant, cooperative, childlike, affect appropriate. Patient's speech is clear and organized. Patient will be discharged to her longterm. Group Spec/RT/OT/PATRICK Present: DARNELL Perez Group Spec/RT/OT/PATRICK Input: Patient does not attend groups, seclusive to room. 01/26/17 Patient progressed with participation. Attends most groups appropriately, childlike, easily redirectable [facility] Jan 26, 2017 15:45
--- NOTE | 2017-01-26 15:50 | HHI.PYPN ---
Subjective Remarks Patient seen in his room with nurse Gibson, chart review, patient compliant medications. Patient continues to isolate remaining in his room. He is seen in bed on April vigilant guarded attitude. Is vague about continuing auditory hallucinations. Is vague about any type of placement after discharge. Will increase a.m. Abilify to 10 mg Review of Systems Except as stated in HPI: all other systems reviewed are Neg Mental Status Examination Appearance: Disheveled Consciousness: Highly Distractible Orientation: Person Motor Activity: Abnormal gait Speech: Hesitant, Other (marked thought blocking bordering on selectively mute) Language: Other (difficult to ascertain due to patient's thought blocking and minimal verbal response) Fund of Knowledge: Inadequate Attention and Concentration: Easily Distracted Memory: Impaired Mood: Sad, Anxious Affect: Flat Thought Process & Associations: Loose associations Thought Content: Bizarre thinking, Hallucinations, Thought blocking, Delusional Hallucination Type: Auditory, Visual Delusion Type: Bizarre, Paranoid Suicidal Ideation: No Suicidal Plan: No Suicidal Intention: No Homicidal Ideation: No Homicidal Plan: No Homicidal Intention: No Insight: Poor Judgment: Poor Results Vitals/IOs Vital Signs Date Time Temp Pulse Resp B/P (MAP) Pulse Ox O2 Delivery O2 Flow Rate FiO2 01/26/17 06:18 98.2 68 17 92/53 (66) 96 01/24/17 12:13 Room Air Assessment & Plan Problem List: (1) Schizoaffective disorder, depressive type ICD Codes: F25.1 - Schizoaffective disorder, depressive type Assessment & Plan Estimated LOS: days patient continue psychotic somewhat depressed. Those vague about suicidality at this time. See medication adjustment above Justification for Cont. Inpt. At this time patient would decompensated placed in a lower level of care Discharge Planning Patient states she is essentially homeless need to work on appropriate placement perhaps an ASSISTED Request HC Surrog/Guard Advoc?: Yes Jon Donato MD Jan 26, 2017 15:50
--- NOTE | 2017-01-26 15:54 | EKG ---
Date Performed: 01/25/2017 Time Performed: 14:12:25 PTAGE: 66 years EKG: Sinus rhythm NORMAL ECG PREVIOUS TRACING : 01/23/2017 20.27 DOCTOR: Jules Laughlin Interpretating Date/Time 01/26/2017 15:54:03
[2017-01-26 17:04] VITALS: BP 118/64; PULSE 70; RESP 18; TEMP 98.4; O2SAT 98
[2017-01-26] MEDS: QUEtiapine FUMARATE 200 MG TAB PO SCH (20:52)
[2017-01-27 05:51] VITALS: BP 100/54; PULSE 67; RESP 16; TEMP 97.6; O2SAT 95
[2017-01-27] MEDS: INSULIN ASPART SUPPLEMENTAL SCALE SQ SCH ×4 (08:00→21:00)
[2017-01-27] MEDS: METOPROLOL SUCCINATE 50 MG EXTENDED RELEASE TAB PO SCH (08:07)
[2017-01-27 08:42] VITALS: BP_SYST 108; BP_SYST 118; BP_SYST 123; BP_DIAS 56; BP_DIAS 58; BP_DIAS 59; PULSE 67; PULSE 72; PULSE 74
[2017-01-27] MEDS: ASPIRIN EC 81 MG TABEC PO SCH (09:00)
[2017-01-27] MEDS: PRAVASTATIN SOD 40 MG TAB PO SCH (09:21)
[2017-01-27] MEDS: TOLTERODINE TARTRATE 2 MG CAP LA PO SCH (09:21)
[2017-01-27] MEDS: DIVALPROEX SODIUM E.R. 500 MG TAB PO SCH (09:22)
[2017-01-27] MEDS: CHOLECALCIFEROL (VIT D3) 1000 UNIT TAB PO SCH (09:22)
[2017-01-27] MEDS: ARIPiprazole 5 MG TAB PO SCH (09:22)
[2017-01-27] MEDS: AMIODARONE 200 MG TAB PO SCH (09:22)
[2017-01-27] MEDS: RESP: ALBUTEROL 2.5 MG/IPRATROPIUM 0.5 MG NEB (SCH) NEB ×3 (10:00→21:27)
--- NOTE | 2017-01-27 11:02 | HHI.PR ---
Subjective Remarks Follow-up on patient with hypertension, atrial fibrillation, diabetes. Patient seen and examined. Patient encountered standing having just completed orthostatic BP measurements. Patient denies any complaints of dizziness upon standing today. Patient denies any headaches, vision changes or lightheadedness. Patient denies any chest pain or palpitations. He denies any cough or shortness of breath. Patient states he was previously on Eliquis but took himself off as he no longer wanted to take the medication and is not open to resuming any anticoagulation at this time. Patient would not give specifics as to why he is unwilling resume anti-coagulation. Objective Vitals Vital Signs Date Time Temp Pulse Resp B/P (MAP) Pulse Ox O2 Delivery O2 Flow Rate FiO2 01/27/17 08:42 74 108/58 (75) 01/27/17 08:42 72 118/56 (76) 01/27/17 08:42 67 123/59 (80) 01/27/17 05:51 97.6 67 16 100/54 (69) 95 01/26/17 17:04 98.4 70 18 118/64 (82) 98 Result Diagram: 01/25/17 1045 01/25/17 1135 Imaging Last Impressions Chest X-Ray 01/23/17 0000 Signed Impressions: Service Date/Time: Monday, January 23, 2017 21:50 - CONCLUSION: No acute disease. Jon Pablo MD Objective Remarks GENERAL: This is a thin, disheveled patient, in no apparent distress. Awake and alert. Hard of hearing. Standing next to hospital bed. SKIN: Warm and dry. HEAD: Atraumatic. Normocephalic. EYES: Extraocular motions intact. No scleral icterus. No injection or drainage. ENT: Nose without bleeding or purulent drainage. Airway patent. NECK: Trachea midline. CARDIOVASCULAR: Regular rate and rhythm without murmurs, gallops, or rubs. RESPIRATORY: Fair air entry bilaterally. No wheezes, rales, or rhonchi. GASTROINTESTINAL: Abdomen soft, non-tender, nondistended. No hepato-splenomegaly , or palpable masses. No guarding. MUSCULOSKELETAL: Extremities without clubbing, cyanosis, or edema. No calf tenderness. NEUROLOGICAL: Awake and alert. Able to move all extremities spontaneously. No focal neurologic findings appreciated. Normal speech. PSYCHIATRIC: Calm and pleasant. Cooperative. Medications and IVs Current Medications Medications (Trade) Dose Ordered Sig/Sanna Route Start Time Stop Time Status Last Admin (Benadryl) 50 mg HS PRN PO 01/24/17 15:30 (Tylenol) 650 mg Q4H PRN PO 01/24/17 15:30 (Milk Of Magnesia Liq) 30 ml DAILY PRN PO 01/24/17 15:30 (Mag-Al Plus Susp Liq) 30 ml Q6H PRN PO 01/24/17 15:30 (Depakote Er) 1,000 mg DAILY PO 01/24/17 15:30 01/27/17 09:22 (Glucophage) 1,000 mg BIDPC PO 01/24/17 18:00 Future Hold 01/25/17 18:08 (Toprol Xl) 100 mg DAILY PO 01/25/17 09:00 01/26/17 09:00 (Pravachol) 40 mg DAILY PO 01/25/17 09:00 01/27/17 09:21 (Januvia) 50 mg DAILY PO 01/25/17 09:00 Future Hold 01/25/17 09:01 (Detrol La) 2 mg DAILY PO 01/25/17 09:00 01/27/17 09:21 (SEROquel) 400 mg HS PO 01/24/17 21:00 01/26/17 20:52 (D50w (Vial) Inj) 50 ml UNSCH PRN IV PUSH 01/25/17 08:00 (NovoLOG SUPPLEMENTAL SCALE) 1 ACHS SLIDING SCALE SQ 01/25/17 08:00 01/25/17 12:00 (Vitamin D3) 1,000 units DAILY PO 01/26/17 09:00 01/27/17 09:22 (Duoneb Neb) 1 ampule Q6HR WHILE AWAKE NEB NEB 01/26/17 14:00 01/28/17 13:59 01/27/17 10:00 (Duoneb Neb) 1 ampule Q2HR NEB PRN NEB 01/26/17 11:30 (Cordarone) 200 mg DAILY PO 01/27/17 09:00 01/27/17 09:22 (Abilify) 10 mg DAILY PO 01/27/17 09:00 01/27/17 09:22 (Ecotrin Ec) 81 mg DAILY PO 01/27/17 09:00 01/27/17 09:00 A/P Assessment and Plan 66-year-old male with a past medical history significant for atrial fibrillation status post ablation 01/28/16, hypertension, diabetes, dyslipidemia , seizure disorder and bipolar disorder, schizoaffective disorder who is admitted to inpatient psychiatry under [place] act for visual and auditory hallucinations concerning the devil and believing the devil was in his chest who has been asked to be seen in consultation by the medicine team for medical management. Schizoaffective disorder Bipolar disorder Psychosis with auditory and visual hallucinations, admitted under [place] act - Management per psychiatric team - PT eval/tx Hypertension - episode of hypotension, symptomatic, suspect medication side effect. BP now improved. Orthostatics BP measurements negative but BP does drop with standing. Recommend treating standing BP measurements only. - Continue patient on metoprolol XL 100 mg daily with parameters - Continue to monitor BP and adjust treatment accordingly Atrial fibrillation - rate controlled - s/p ablation 01/28/16 - continue on patient on Amiodarone dose 200mg daily and metoprolol - ASA 81mg daily - [id number] score 3. Patient previously on Eliquis but took himself off. Patient refusing to resume anticoagulation at this time. 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 - continue to monitor HR DM - diabetic heart healthy diet - HgbA1c 6.0 - continue accucheck and ISS - blood sugars running low. Continue to hold home dose of Januvia and Metformin Suspect COPD Ongoing tobaccoism - discussed importance of cessation. Patient offered nicotine patch but declined. - Duonebs as needed - continue to monitor respiratory status Seizure d/o - continue patient on Depakote ER 1000mg daily - no seizure activity reported Dyslipidemia - continue patient on home dose of statin therapy Vitamin D deficiency - Vitamin D level 29.0. Started on po vitamin D supplementation. Continue. - patient will need to follow up with PCP as outpatient DVT prophylaxis - patient is ambulatory Discussed with patient, nursing staff and Wendy Webber Jan 27, 2017 11:02
--- NOTE | 2017-01-27 12:37 | HHI.PYPN ---
Subjective Remarks [place] today is retained by Machine Welder Darrick. Patient continues confused, disoriented with minimal responses and court. Is compliant medications at this time. For now continue treatment Review of Systems Except as stated in HPI: all other systems reviewed are Neg Mental Status Examination Appearance: Disheveled Consciousness: Highly Distractible Orientation: Person Motor Activity: Abnormal gait Speech: Hesitant, Other (marked thought blocking bordering on selectively mute) Language: Other (difficult to ascertain due to patient's thought blocking and minimal verbal response) Fund of Knowledge: Inadequate Attention and Concentration: Easily Distracted Memory: Impaired Mood: Sad, Anxious Affect: Flat Thought Process & Associations: Loose associations Thought Content: Bizarre thinking, Hallucinations, Thought blocking, Delusional Hallucination Type: Auditory, Visual Delusion Type: Bizarre, Paranoid Suicidal Ideation: No Suicidal Plan: No Suicidal Intention: No Homicidal Ideation: No Homicidal Plan: No Homicidal Intention: No Insight: Poor Judgment: Poor Results Vitals/IOs Vital Signs Date Time Temp Pulse Resp B/P (MAP) Pulse Ox O2 Delivery O2 Flow Rate FiO2 01/27/17 08:42 74 108/58 (75) 01/27/17 05:51 97.6 16 95 01/24/17 12:13 Room Air Assessment & Plan Problem List: (1) Schizoaffective disorder, depressive type ICD Codes: F25.1 - Schizoaffective disorder, depressive type Assessment & Plan Estimated LOS: days patient continues somewhat psychotic depressed and confused. Compliant medications. Has been retained by Machine Welder Darrick. For now continue treatment Justification for Cont. Inpt. At this time patient will decompensate the placed in the lower level of care Discharge Planning Placement remains ambiguous at this time Request HC Surrog/Guard Advoc?: Yes Jon Donato MD Jan 27, 2017 12:37
[2017-01-27] MEDS: QUEtiapine FUMARATE 200 MG TAB PO SCH (20:34)
[2017-01-28 05:00] VITALS: BP_SYST 117; BP_DIAS 68; BP_DIAS 82; PULSE 70; RESP 18; TEMP 97.2; O2SAT 100
[2017-01-28] MEDS: INSULIN ASPART SUPPLEMENTAL SCALE SQ SCH ×4 (08:00→21:00)
[2017-01-28] MEDS: RESP: ALBUTEROL 2.5 MG/IPRATROPIUM 0.5 MG NEB (SCH) NEB (08:00)
[2017-01-28] MEDS: DIVALPROEX SODIUM E.R. 500 MG TAB PO SCH (09:55)
[2017-01-28] MEDS: CHOLECALCIFEROL (VIT D3) 1000 UNIT TAB PO SCH (09:55)
[2017-01-28] MEDS: ARIPiprazole 5 MG TAB PO SCH (09:55)
[2017-01-28] MEDS: PRAVASTATIN SOD 40 MG TAB PO SCH (09:55)
[2017-01-28] MEDS: METOPROLOL SUCCINATE 50 MG EXTENDED RELEASE TAB PO SCH (09:55)
[2017-01-28] MEDS: TOLTERODINE TARTRATE 2 MG CAP LA PO SCH (09:56)
[2017-01-28] MEDS: AMIODARONE 200 MG TAB PO SCH (09:56)
[2017-01-28] MEDS: ASPIRIN EC 81 MG TABEC PO SCH (09:56)
[2017-01-28] MEDS ORDERED: WALKER WHEELS/F1 MIS (09:57)
--- NOTE | 2017-01-28 09:59 | HHI.PR ---
Subjective Remarks Follow-up on patient with hypertension, atrial fibrillation, diabetes. Patient seen and examined. Patient denies any complaints. Denies any fever or chills. Denies any cough or shortness of breath. Denies any palpitations, dizziness, lightheadedness or chest pain. Objective Vitals Vital Signs Date Time Temp Pulse Resp B/P (MAP) Pulse Ox O2 Delivery O2 Flow Rate FiO2 01/28/17 05:00 97.2 70 18 117/82 (94) 100 01/28/17 05:00 97.2 70 18 117/68 (84) 100 Result Diagram: 01/25/17 1045 01/25/17 1135 Imaging Last Impressions Chest X-Ray 01/23/17 0000 Signed Impressions: Service Date/Time: Monday, January 23, 2017 21:50 - CONCLUSION: No acute disease. Jon Pablo MD Objective Remarks GENERAL: This is a thin, disheveled patient, in no apparent distress. Awake and alert. Hard of hearing. Lying in bed. SKIN: Warm and dry. HEAD: Atraumatic. Normocephalic. EYES: Extraocular motions intact. No scleral icterus. No injection or drainage. ENT: Nose without bleeding or purulent drainage. Airway patent. NECK: Trachea midline. CARDIOVASCULAR: Regular rate and rhythm without murmurs, gallops, or rubs. RESPIRATORY: Fair air entry bilaterally. No wheezes, rales, or rhonchi. GASTROINTESTINAL: Abdomen soft, non-tender, nondistended. No hepato-splenomegaly , or palpable masses. No guarding. MUSCULOSKELETAL: Extremities without clubbing, cyanosis, or edema. No calf tenderness. NEUROLOGICAL: Awake and alert. Able to move all extremities spontaneously. No focal neurologic findings appreciated. Normal speech. PSYCHIATRIC: Calm and pleasant. Cooperative. Flat affect. Medications and IVs Current Medications Medications (Trade) Dose Ordered Sig/Sanna Route Start Time Stop Time Status Last Admin (Benadryl) 50 mg HS PRN PO 01/24/17 15:30 (Tylenol) 650 mg Q4H PRN PO 01/24/17 15:30 (Milk Of Magnesia Liq) 30 ml DAILY PRN PO 01/24/17 15:30 (Mag-Al Plus Susp Liq) 30 ml Q6H PRN PO 01/24/17 15:30 (Depakote Er) 1,000 mg DAILY PO 01/24/17 15:30 01/27/17 09:22 (Glucophage) 1,000 mg BIDPC PO 01/24/17 18:00 Future Hold 01/25/17 18:08 (Toprol Xl) 100 mg DAILY PO 01/25/17 09:00 01/26/17 09:00 (Pravachol) 40 mg DAILY PO 01/25/17 09:00 01/27/17 09:21 (Januvia) 50 mg DAILY PO 01/25/17 09:00 Future Hold 01/25/17 09:01 (Detrol La) 2 mg DAILY PO 01/25/17 09:00 01/27/17 09:21 (SEROquel) 400 mg HS PO 01/24/17 21:00 01/27/17 20:34 (D50w (Vial) Inj) 50 ml UNSCH PRN IV PUSH 01/25/17 08:00 (NovoLOG SUPPLEMENTAL SCALE) 1 ACHS SLIDING SCALE SQ 01/25/17 08:00 01/25/17 12:00 (Vitamin D3) 1,000 units DAILY PO 01/26/17 09:00 01/27/17 09:22 (Duoneb Neb) 1 ampule Q6HR WHILE AWAKE NEB NEB 01/26/17 14:00 01/28/17 13:59 01/27/17 10:00 (Duoneb Neb) 1 ampule Q2HR NEB PRN NEB 01/26/17 11:30 (Cordarone) 200 mg DAILY PO 01/27/17 09:00 01/27/17 09:22 (Abilify) 10 mg DAILY PO 01/27/17 09:00 01/27/17 09:22 (Ecotrin Ec) 81 mg DAILY PO 01/27/17 09:00 01/27/17 09:00 A/P Assessment and Plan 66-year-old male with a past medical history significant for atrial fibrillation status post ablation 01/28/16, hypertension, diabetes, dyslipidemia , seizure disorder and bipolar disorder, schizoaffective disorder who is admitted to inpatient psychiatry [place] for visual and auditory hallucinations concerning the devil and believing the devil was in his chest who has been asked to be seen in consultation by the medicine team for medical management. Schizoaffective disorder Bipolar disorder Psychosis with auditory and visual hallucinations, admitted [place] - Management per psychiatric team - continue with PT. Wheeled walker ordered per PT recommendations. Hypertension - episode of hypotension, symptomatic, suspect medication side effect. Improved. Orthostatics BP measurements negative but BP does drop with standing. Recommend treating standing BP measurements only. - Continue patient on metoprolol XL 100 mg daily with parameters - BP appears stable. Atrial fibrillation - rate controlled - s/p ablation 01/28/16 - continue on patient on Amiodarone dose 200mg daily and metoprolol - ASA 81mg daily - [id number] score 3. Patient previously on Eliquis but took himself off. Patient refusing to resume anticoagulation at this time. Discussed associated risks of being off of anticoagulation and recommending patient follow up with PCP/client support analyst following discharge. - continue to monitor HR DM - diabetic heart healthy diet - HgbA1c 6.0 - continue accucheck and ISS - blood sugars running low. Continue to hold home dose of Januvia and Metformin Suspect COPD Ongoing tobaccoism - discussed importance of cessation. Patient offered nicotine patch but declined. - Duonebs as needed - continue to monitor respiratory status Seizure d/o - continue patient on Depakote ER 1000mg daily - no seizure activity reported Dyslipidemia - continue patient on home dose of statin therapy Vitamin D deficiency - Vitamin D level 29.0. Started on po vitamin D supplementation. Continue. - patient will need to follow up with PCP as outpatient DVT prophylaxis - patient is ambulatory Discussed with patient, nursing staff and Wendy Webber Jan 28, 2017 09:59
--- NOTE | 2017-01-28 14:14 | HHI.PYPN ---
Subjective Remarks Patient seen in his room with floor staff, chart reviewed, patient compliant medication, patient continues somewhat confused and very slow responses and poor eye contact does denies suicidality at this time somewhat ambiguous about hearing voices. For now continue treatment Review of Systems Except as stated in HPI: all other systems reviewed are Neg Mental Status Examination Appearance: Disheveled Consciousness: Highly Distractible Orientation: Person Motor Activity: Abnormal gait Speech: Hesitant, Other (marked thought blocking bordering on selectively mute) Language: Other (difficult to ascertain due to patient's thought blocking and minimal verbal response) Fund of Knowledge: Inadequate Attention and Concentration: Easily Distracted Memory: Impaired Mood: Sad, Anxious Affect: Flat Thought Process & Associations: Loose associations Thought Content: Bizarre thinking, Hallucinations, Thought blocking, Delusional Hallucination Type: Auditory, Visual Delusion Type: Bizarre, Paranoid Suicidal Ideation: No Suicidal Plan: No Suicidal Intention: No Homicidal Ideation: No Homicidal Plan: No Homicidal Intention: No Insight: Poor Judgment: Poor Results Vitals/IOs Vital Signs Date Time Temp Pulse Resp B/P (MAP) Pulse Ox O2 Delivery O2 Flow Rate FiO2 01/28/17 05:00 97.2 70 18 117/82 (94) 100 01/24/17 12:13 Room Air Assessment & Plan Problem List: (1) Schizoaffective disorder, depressive type ICD Codes: F25.1 - Schizoaffective disorder, depressive type Assessment & Plan Estimated LOS: days patient continue psychotic and disorganized, slow responses. Appears To be responding to internal stimuli Justification for Cont. Inpt. At this time patient will decompensate the placed in a lower level of care Discharge Planning This time placement may be quite problematic Request HC Surrog/Guard Advoc?: Yes Jon Donato MD Jan 28, 2017 14:14
[2017-01-28 17:36] VITALS: BP 116/56; PULSE 72; RESP 18; TEMP 96.3; O2SAT 100
[2017-01-28] MEDS: QUEtiapine FUMARATE 200 MG TAB PO SCH (21:30)
[2017-01-29 05:32] VITALS: BP 103/58; PULSE 69; RESP 17; TEMP 97.5; O2SAT 95
[2017-01-29] MEDS: INSULIN ASPART SUPPLEMENTAL SCALE SQ SCH ×4 (07:47→21:00)
[2017-01-29] MEDS: METOPROLOL SUCCINATE 50 MG EXTENDED RELEASE TAB PO SCH (09:00)
[2017-01-29] MEDS: DIVALPROEX SODIUM E.R. 500 MG TAB PO SCH (09:38)
[2017-01-29] MEDS: CHOLECALCIFEROL (VIT D3) 1000 UNIT TAB PO SCH (09:38)
[2017-01-29] MEDS: TOLTERODINE TARTRATE 2 MG CAP LA PO SCH (09:38)
[2017-01-29] MEDS: PRAVASTATIN SOD 40 MG TAB PO SCH (09:38)
[2017-01-29] MEDS: ARIPiprazole 5 MG TAB PO SCH (09:38)
[2017-01-29] MEDS: AMIODARONE 200 MG TAB PO SCH (09:39)
[2017-01-29] MEDS: ASPIRIN EC 81 MG TABEC PO SCH (09:39)
--- NOTE | 2017-01-29 11:34 | HHI.PR ---
Subjective Remarks Follow-up on patient with hypertension, atrial fibrillation, diabetes. Patient seen and examined. Patient reports some dizziness upon standing today. Denies any other complaints. Denies any fever, chills, cough, palpitations, N/V, chest pain or dyspnea. Objective Vitals Vital Signs Date Time Temp Pulse Resp B/P (MAP) Pulse Ox O2 Delivery O2 Flow Rate FiO2 01/29/17 05:32 97.5 69 17 103/58 (73) 95 01/28/17 17:36 96.3 72 18 116/56 (76) 100 I/O 01/28/17 01/28/17 01/28/17 01/29/17 01/29/17 01/29/17 07:00 15:00 23:00 07:00 15:00 23:00 Intake Total 360 ml Balance 360 ml Intake Oral 360 ml Result Diagram: 01/25/17 1045 01/25/17 1135 Imaging Last Impressions Chest X-Ray 01/23/17 0000 Signed Impressions: Service Date/Time: Monday, January 23, 2017 21:50 - CONCLUSION: No acute disease. Jon Pablo MD Objective Remarks GENERAL: This is a thin, elderly male patient, in no apparent distress. Awake and alert. Hard of hearing. Lying in bed. SKIN: Warm and dry. HEAD: Atraumatic. Normocephalic. EYES: Extraocular motions intact. No scleral icterus. No injection or drainage. ENT: Nose without bleeding or purulent drainage. Airway patent. NECK: Trachea midline. CARDIOVASCULAR: Regular rate and rhythm without murmurs, gallops, or rubs. RESPIRATORY: Fair air entry bilaterally. No wheezes, rales, or rhonchi. GASTROINTESTINAL: Abdomen soft, non-tender, nondistended. No hepato-splenomegaly , or palpable masses. No guarding. MUSCULOSKELETAL: Extremities without clubbing, cyanosis, or edema. No calf tenderness. NEUROLOGICAL: Awake and alert. Able to move all extremities spontaneously. No focal neurologic findings appreciated. Normal speech. PSYCHIATRIC: Calm and pleasant. Cooperative. Flat affect. Medications and IVs Current Medications Medications (Trade) Dose Ordered Sig/Sanna Route Start Time Stop Time Status Last Admin (Benadryl) 50 mg HS PRN PO 01/24/17 15:30 (Tylenol) 650 mg Q4H PRN PO 01/24/17 15:30 (Milk Of Magnesia Liq) 30 ml DAILY PRN PO 01/24/17 15:30 (Mag-Al Plus Susp Liq) 30 ml Q6H PRN PO 01/24/17 15:30 (Depakote Er) 1,000 mg DAILY PO 01/24/17 15:30 01/29/17 09:38 (Glucophage) 1,000 mg BIDPC PO 01/24/17 18:00 Future Hold 01/25/17 18:08 (Pravachol) 40 mg DAILY PO 01/25/17 09:00 01/29/17 09:38 (Januvia) 50 mg DAILY PO 01/25/17 09:00 Future Hold 01/25/17 09:01 (Detrol La) 2 mg DAILY PO 01/25/17 09:00 01/29/17 09:38 (SEROquel) 400 mg HS PO 01/24/17 21:00 01/28/17 21:30 (D50w (Vial) Inj) 50 ml UNSCH PRN IV PUSH 01/25/17 08:00 (NovoLOG SUPPLEMENTAL SCALE) 1 ACHS SLIDING SCALE SQ 01/25/17 08:00 01/28/17 11:58 (Vitamin D3) 1,000 units DAILY PO 01/26/17 09:00 01/29/17 09:38 (Duoneb Neb) 1 ampule Q2HR NEB PRN NEB 01/26/17 11:30 (Cordarone) 200 mg DAILY PO 01/27/17 09:00 01/29/17 09:39 (Abilify) 10 mg DAILY PO 01/27/17 09:00 01/29/17 09:38 (Ecotrin Ec) 81 mg DAILY PO 01/27/17 09:00 01/29/17 09:39 (Toprol Xl) 50 mg DAILY PO 01/29/17 09:00 A/P Assessment and Plan 66-year-old male with a past medical history significant for atrial fibrillation status post ablation 01/28/16, hypertension, diabetes, dyslipidemia , seizure disorder and bipolar disorder, schizoaffective disorder who is admitted to inpatient psychiatry [place] for visual and auditory hallucinations concerning the devil and believing the devil was in his chest who has been asked to be seen in consultation by the medicine team for medical management. Schizoaffective disorder Bipolar disorder Psychosis with auditory and visual hallucinations, admitted [place] - Management per psychiatric team - continue with PT. Wheeled walker ordered per PT recommendations. PT at rehab. Hypertension - episode of hypotension, symptomatic, suspect medication side effect. Improved. Orthostatics BP measurements negative but BP does drop with standing. Recommend treating standing BP measurements only. - Continue patient on metoprolol XL but decrease dose to 50mg daily with parameters - SHERICE hose on prior to standing. Discussed with patient slow transitions, use of SHERICE hose. - encourage fluids Atrial fibrillation - rate controlled - s/p ablation 01/28/16 - continue on patient on Amiodarone dose 200mg daily and metoprolol - ASA 81mg daily - [id number] score 3. Patient previously on Eliquis but took himself off. Patient refusing to resume anticoagulation at this time. Discussed associated risks of being off of anticoagulation and recommending patient follow up with PCP/commercial collections driver following discharge. - continue to monitor HR DM - diabetic heart healthy diet - HgbA1c 6.0 - continue accucheck and ISS - blood sugars running low. Continue to hold home dose of Januvia and Metformin Suspect COPD Ongoing tobaccoism - discussed importance of cessation. Patient offered nicotine patch but declined. - Duonebs as needed - continue to monitor respiratory status Seizure d/o - continue patient on Depakote ER 1000mg daily - no seizure activity reported Dyslipidemia - continue patient on home dose of statin therapy Vitamin D deficiency - Vitamin D level 29.0. Started on po vitamin D supplementation. Continue. - patient will need to follow up with PCP as outpatient DVT prophylaxis - patient is ambulatory Discussed with patient, nursing staff and Wendy Webber Jan 29, 2017 11:34
[2017-01-29 13:19] LABS: BICARBONATE 29.6 MEQ/L (21.0-32.0); POTASSIUM 4.7 MEQ/L (3.5-5.1)
--- NOTE | 2017-01-29 15:39 | HHI.PYPN ---
Subjective Remarks Patient was seen and case discussed with nursing. Per nursing he may be responding to internal stimuli, he was evidence talking to himself. Denies any auditory or visual hallucinations. He does admit to ideas of reference from the television. Behaving well on the unit. Denies suicidal or homicidal ideation intent or plan. Tolerating medications well. No longer believes that the devil is in his chest Mental Status Examination Appearance: Disheveled Consciousness: Highly Distractible Orientation: Person Motor Activity: Abnormal gait Speech: Hesitant, Other (marked thought blocking bordering on selectively mute) Language: Other (difficult to ascertain due to patient's thought blocking and minimal verbal response) Fund of Knowledge: Inadequate Attention and Concentration: Easily Distracted Memory: Impaired Mood: Sad, Anxious Affect: Flat Thought Process & Associations: Loose associations Thought Content: Bizarre thinking, Hallucinations, Thought blocking, Delusional Hallucination Type: Auditory Delusion Type: Bizarre, Paranoid Suicidal Ideation: No Suicidal Plan: No Suicidal Intention: No Homicidal Ideation: No Homicidal Plan: No Homicidal Intention: No Insight: Poor Judgment: Poor Results Labs Test 01/29/17 12:49 Blood Urea Nitrogen 20 MG/DL Creatinine 0.99 MG/DL Random Glucose 128 MG/DL Calcium Level 9.7 MG/DL Phosphorus Level 2.9 MG/DL Magnesium Level 2.0 MG/DL Sodium Level 139 MEQ/L Potassium Level 4.7 MEQ/L Chloride Level 106 MEQ/L Carbon Dioxide Level 29.6 MEQ/L Anion Gap 3 MEQ/L Estimat Glomerular Filtration Rate 75 ML/MIN Vitals/IOs Vital Signs Date Time Temp Pulse Resp B/P (MAP) Pulse Ox O2 Delivery O2 Flow Rate FiO2 01/29/17 05:32 97.5 69 17 103/58 (73) 95 Intake and Output 01/29/17 01/29/17 01/30/17 08:00 16:00 00:00 Intake Total 360 ml 240 ml Balance 360 ml 240 ml Assessment & Plan Problem List: (1) Schizoaffective disorder, depressive type ICD Codes: F25.1 - Schizoaffective disorder, depressive type Assessment & Plan Continue current treatment plan Justification for Cont. Inpt. Patient would decompensate in a less restrictive setting Request HC Surrog/Guard Advoc?: Yes Que Sanchez DO Jan 29, 2017 15:39
[2017-01-29 18:31] VITALS: BP 116/62; PULSE 66; RESP 18; TEMP 96.2; O2SAT 97
[2017-01-29] MEDS: QUEtiapine FUMARATE 200 MG TAB PO SCH (22:42)
[2017-01-29] MEDS: HEPARIN SODIUM - SQ 10,000 UNITS/ML VIAL SQ SCH (22:43)
[2017-01-30 06:00] VITALS: BP 129/66; PULSE 69; RESP 16; TEMP 97.7; O2SAT 98
[2017-01-30] MEDS: INSULIN ASPART SUPPLEMENTAL SCALE SQ SCH ×4 (07:30→21:00)
[2017-01-30] MEDS: ARIPiprazole 5 MG TAB PO SCH (09:25)
[2017-01-30] MEDS: METOPROLOL SUCCINATE 50 MG EXTENDED RELEASE TAB PO SCH (09:25)
[2017-01-30] MEDS: TOLTERODINE TARTRATE 2 MG CAP LA PO SCH (09:25)
[2017-01-30] MEDS: AMIODARONE 200 MG TAB PO SCH (09:26)
[2017-01-30] MEDS: DIVALPROEX SODIUM E.R. 500 MG TAB PO SCH (09:26)
[2017-01-30] MEDS: ASPIRIN EC 81 MG TABEC PO SCH (09:26)
[2017-01-30] MEDS: CHOLECALCIFEROL (VIT D3) 1000 UNIT TAB PO SCH (09:26)
[2017-01-30] MEDS: PRAVASTATIN SOD 40 MG TAB PO SCH (09:26)
--- NOTE | 2017-01-30 11:01 | HHI.PYPN ---
Subjective Remarks Patient was seen and case discussed with nursing. Patient remains seclusive to bed. The right side of his face appear swollen with a possible abscess. Nursing will alert his hospitalist today. He denies auditory hallucinations, there is quite a bit of thought blocking during the interview. Admits to paranoia. Tolerating medications well Mental Status Examination Appearance: Disheveled Consciousness: Highly Distractible Orientation: Person Motor Activity: Abnormal gait Speech: Hesitant, Other (marked thought blocking bordering on selectively mute) Language: Other (difficult to ascertain due to patient's thought blocking and minimal verbal response) Fund of Knowledge: Inadequate Attention and Concentration: Easily Distracted Memory: Impaired Mood: Sad, Anxious Affect: Flat Thought Process & Associations: Loose associations Thought Content: Bizarre thinking, Hallucinations, Thought blocking, Delusional Hallucination Type: Auditory (denies today) Delusion Type: Bizarre, Paranoid Suicidal Ideation: No Suicidal Plan: No Suicidal Intention: No Homicidal Ideation: No Homicidal Plan: No Homicidal Intention: No Insight: Poor Judgment: Poor Results Labs Test 01/29/17 12:49 Blood Urea Nitrogen 20 MG/DL Creatinine 0.99 MG/DL Random Glucose 128 MG/DL Calcium Level 9.7 MG/DL Phosphorus Level 2.9 MG/DL Magnesium Level 2.0 MG/DL Sodium Level 139 MEQ/L Potassium Level 4.7 MEQ/L Chloride Level 106 MEQ/L Carbon Dioxide Level 29.6 MEQ/L Anion Gap 3 MEQ/L Estimat Glomerular Filtration Rate 75 ML/MIN Vitals/IOs Vital Signs Date Time Temp Pulse Resp B/P (MAP) Pulse Ox O2 Delivery O2 Flow Rate FiO2 01/30/17 06:00 97.7 69 16 129/66 (87) 98 Assessment & Plan Problem List: (1) Schizoaffective disorder, depressive type ICD Codes: F25.1 - Schizoaffective disorder, depressive type Assessment & Plan Continue current treatment plan Justification for Cont. Inpt. Patient will decompensate in a less restrictive setting Request HC Surrog/Guard Advoc?: Yes Que Sanchez DO Jan 30, 2017 11:01
[2017-01-30] MEDS: HEPARIN SODIUM - SQ 10,000 UNITS/ML VIAL SQ SCH ×2 (13:39→21:20)
--- NOTE | 2017-01-30 15:31 | HHI.PR ---
Subjective Remarks Nurse stated that patient has right lower jaw swelling that occurred yesterday. She is concern for tooth infection. Patient remains afebrile. Patient denies any pain or swelling. But he is a poor historian. Objective Vitals Vital Signs Date Time Temp Pulse Resp B/P (MAP) Pulse Ox O2 Delivery O2 Flow Rate FiO2 01/30/17 13:18 14 01/30/17 06:00 97.7 69 16 129/66 (87) 98 01/29/17 18:31 96.2 66 18 116/62 (80) 97 I/O 01/29/17 01/29/17 01/29/17 01/30/17 01/30/17 01/30/17 07:00 15:00 23:00 07:00 15:00 23:00 Intake Total 600 ml Balance 600 ml Intake Oral 600 ml Result Diagram: 01/29/17 1249 Objective Remarks GENERAL: in NAD HEENT: Multiple fillings noted. No tenderness to palpation and palpating each tooth. No tenderness palpation and palpating the upper and lower jaw. Very minimal swelling. CARDIOVASCULAR: Regular rate and rhythm without murmurs, gallops, or rubs. RESPIRATORY: Breath sounds equal bilaterally. No accessory muscle use. GASTROINTESTINAL: Abdomen soft, non-tender, nondistended. MUSCULOSKELETAL: No cyanosis, or edema. BACK: Nontender without obvious deformity. No CVA tenderness. Medications and IVs Current Medications Sodium Chloride 1,000 ml @ 999 mls/hr BOLUS ONCE IV Last administered on 23:02; Start 01/23/17 at 23:00; Stop 01/24/17 at 00:00; Status DC Lorazepam (Ativan) 1 mg Q6H PRN PO MODERATE TO SEVERE ANXIETY Last administered on 01/24/17 20:07; Start 01/24/17 at 15:30; Stop 01/25/17 at 10 :25; Status DC Lorazepam (Ativan Inj) 1 mg Q6H PRN IM MODERATE TO SEVERE ANXIETY Last administered on 01/24/17 16:03; Start 01/24/17 at 15:30; Stop 01/25/17 at 10 :25; Status DC Diphenhydramine HCl (Benadryl) 50 mg HS PRN PO INSOMNIA; Start 01/24/17 at 15: 30 Diphenhydramine HCl (Benadryl Inj) 50 mg HS PRN IM INSOMNIA; Start 01/24/17 at 15:30; Stop 01/25/17 at 10:25; Status DC Acetaminophen (Tylenol) 650 mg Q4H PRN PO Pain 1-5 or Temp >101F Last administered on 01/30/17 12:04; Start 01/24/17 at 15:30 Magnesium Hydroxide (Milk Of Magnesia Liq) 30 ml DAILY PRN PO CONSTIPATION; Start 01/24/17 at 15:30 Al Hydrox/Mg Hydrox/Simethicone (Mag-Al Plus Susp Liq) 30 ml Q6H PRN PO DYSPEPSIA; Start 01/24/17 at 15:30 Amiodarone HCl (Cordarone) 400 mg Q12HR PO Last administered on 01/26/17 09: 00; Start 01/24/17 at 21:00; Stop 01/26/17 at 15:16; Status DC Divalproex Sodium (Depakote Er) 1,000 mg DAILY PO Last administered on 09:26; Start 01/24/17 at 15:30 Metformin HCl (Glucophage) 1,000 mg BIDPC PO Last administered on 01/25/17 18 :08; Start 01/24/17 at 18:00; Status Future Hold Metoprolol Succinate (Toprol Xl) 100 mg DAILY PO Last administered on 09:55; Start 01/25/17 at 09:00; Stop 01/29/17 at 07:50; Status DC Pravastatin Sodium (Pravachol) 40 mg DAILY PO Last administered on 01/30/17 09:26; Start 01/25/17 at 09:00 Sitagliptin Phosphate (Januvia) 50 mg DAILY PO Last administered on 01/25/17 09:01; Start 01/25/17 at 09:00; Status Future Hold Metoprolol Succinate (Toprol Xl) 150 mg DAILY PO ; Start 01/25/17 at 09:00; Stop 01/25/17 at 09:00; Status DC Tolterodine Tartrate (Detrol La) 2 mg DAILY PO Last administered on 01/30/17 09:25; Start 01/25/17 at 09:00 Quetiapine Fumarate (SEROquel) 400 mg HS PO Last administered on 01/29/17 22: 42; Start 01/24/17 at 21:00 Aripiprazole (Abilify) 2 mg HS PO Last administered on 01/24/17 21:49; Start 01/24/17 at 21:00; Stop 01/25/17 at 10:25; Status DC Dextrose (D50w (Vial) Inj) 50 ml UNSCH PRN IV PUSH HYPOGLYCEMIA-SEE COMMENTS; Start 01/24/17 at 20:45; Stop 01/25/17 at 08:16; Status DC Glucagon (Glucagon Inj) 1 mg UNSCH PRN OTHER HYPOGLYCEMIA-SEE COMMENTS; Start 01/24/17 at 20:45; Stop 01/25/17 at 08:16; Status DC Dextrose (D50w (Vial) Inj) 50 ml UNSCH PRN IV PUSH HYPOGLYCEMIA-SEE COMMENTS; Start 01/25/17 at 08:00 Glucagon (Glucagon Inj) 1 mg UNSCH PRN OTHER HYPOGLYCEMIA-SEE COMMENTS; Start 01/25/17 at 08:00; Stop 01/25/17 at 10:25; Status DC Insulin Aspart (NovoLOG SUPPLEMENTAL SCALE) 1 ACHS SLIDING SCALE SQ Last administered on 01/30/17 11:19; Start 01/25/17 at 08:00 Aripiprazole (Abilify) 5 mg DAILY PO Last administered on 01/26/17 09:00; Start 01/25/17 at 11:00; Stop 01/26/17 at 15:47; Status DC Cholecalciferol (Vitamin D3) 1,000 units DAILY PO Last administered on 09:26; Start 01/26/17 at 09:00 Albuterol/ Ipratropium (Duoneb Neb) 1 ampule Q6HR WHILE AWAKE NEB NEB Last administered on 01/27/17 10:00; Start 01/26/17 at 14:00; Stop 01/28/17 at 13 :59; Status DC Albuterol/ Ipratropium (Duoneb Neb) 1 ampule Q2HR NEB PRN NEB Cough, dyspnea, wheezing; Start 01/26/17 at 11:30 Amiodarone HCl (Cordarone) 200 mg DAILY PO Last administered on 01/30/17 09: 26; Start 01/27/17 at 09:00 Aripiprazole (Abilify) 10 mg DAILY PO Last administered on 01/30/17 09:25; Start 01/27/17 at 09:00 Aspirin (Ecotrin Ec) 81 mg DAILY PO Last administered on 01/30/17 09:26; Start 01/27/17 at 09:00 Metoprolol Succinate (Toprol Xl) 50 mg DAILY PO Last administered on 09:25; Start 01/29/17 at 09:00 Heparin Sodium (Porcine) (Heparin Inj) 5,000 units Q12HR SQ Last administered on 01/30/17 13:39; Start 01/29/17 at 21:00 A/P Assessment and Plan 66-year-old male with a past medical history significant for atrial fibrillation status post ablation 01/28/16, hypertension, diabetes, dyslipidemia , seizure disorder and bipolar disorder, schizoaffective disorder who is admitted to inpatient psychiatry under [employer] act for visual and auditory hallucinations concerning the devil and believing the devil was in his chest who has been asked to be seen in consultation by the medicine team for medical management. Schizoaffective disorder Bipolar disorder Psychosis with auditory and visual hallucinations, admitted under [employer] act - Management per psychiatric team - continue with PT. Wheeled walker ordered per PT recommendations. PT at rehab. Questionable jaw swelling -Very minimal swelling but not impressive. Patient has no tenderness. Patient stated that he is supposed to see a dentist. Will give penicillin to see this helps with the patient is relatively asymptomatic. We'll continue monitor clinically. Hypertension -Better control. Continue current regimen. Atrial fibrillation - rate controlled - s/p ablation 01/28/16 - continue on patient on Amiodarone dose 200mg daily and metoprolol - ASA 81mg daily - [id number] score 3. Patient previously on Eliquis but took himself off. Patient refusing to resume anticoagulation at this time. 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 - continue to monitor HR DM - diabetic heart healthy diet - HgbA1c 6.0 - continue accucheck and ISS - blood sugars running low. Continue to hold home dose of Januvia and Metformin Suspect COPD Ongoing tobaccoism - discussed importance of cessation. Patient offered nicotine patch but declined. - Duonebs as needed - continue to monitor respiratory status Seizure d/o - continue patient on Depakote ER 1000mg daily - no seizure activity reported Dyslipidemia - continue patient on home dose of statin therapy Vitamin D deficiency - Vitamin D level 29.0. Started on po vitamin D supplementation. Continue. - patient will need to follow up with PCP as outpatient DVT prophylaxis - patient is ambulatory Larisa Calvo MD Jan 30, 2017 15:31
[2017-01-30] MEDS: PENICILLIN V POTASSIUM 500 MG TAB PO SCH ×2 (16:49→21:21)
[2017-01-30 18:39] VITALS: BP 111/65; PULSE 66; RESP 18; TEMP 98.7; O2SAT 98
[2017-01-30] MEDS: QUEtiapine FUMARATE 200 MG TAB PO SCH (21:21)
[2017-01-31] MEDS: PENICILLIN V POTASSIUM 500 MG TAB PO SCH ×3 (05:52→21:00)
[2017-01-31 05:57] VITALS: BP 104/57; PULSE 64; RESP 17; TEMP 97.6; O2SAT 97
[2017-01-31] MEDS: INSULIN ASPART SUPPLEMENTAL SCALE SQ SCH ×2 (08:00→11:42)
[2017-01-31] MEDS: HEPARIN SODIUM - SQ 10,000 UNITS/ML VIAL SQ SCH ×2 (09:00→21:01)
[2017-01-31] MEDS: DIVALPROEX SODIUM E.R. 500 MG TAB PO SCH (09:00)
[2017-01-31 09:09] VITALS: BP 121/80; PULSE 77
[2017-01-31] MEDS: ARIPiprazole 5 MG TAB PO SCH (09:26)
[2017-01-31] MEDS: PRAVASTATIN SOD 40 MG TAB PO SCH (09:26)
[2017-01-31] MEDS: AMIODARONE 200 MG TAB PO SCH (09:26)
[2017-01-31] MEDS: CHOLECALCIFEROL (VIT D3) 1000 UNIT TAB PO SCH (09:26)
[2017-01-31] MEDS: ASPIRIN EC 81 MG TABEC PO SCH (09:26)
[2017-01-31] MEDS: TOLTERODINE TARTRATE 2 MG CAP LA PO SCH (09:26)
[2017-01-31] MEDS: METOPROLOL SUCCINATE 50 MG EXTENDED RELEASE TAB PO SCH (09:26)
--- NOTE | 2017-01-31 11:28 | HHI.PYPN ---
Subjective Remarks Patient seen in the room with nurse Malini, patient continues to spend much time isolating, chart reviewed, patient compliant medications. Patient responses are still markedly delayed with significant thought blocking. With a distractible look on his face. He somewhat obliquely acknowledges auditory hallucinations of a threatening nature. These voices appeared to be telling him to harm himself. Will increase a.m. Abilify to 15 mg. Review of Systems Except as stated in HPI: all other systems reviewed are Neg Mental Status Examination Appearance: Disheveled Consciousness: Highly Distractible Orientation: Person Motor Activity: Abnormal gait Speech: Hesitant, Other (marked thought blocking bordering on selectively mute) Language: Other (difficult to ascertain due to patient's thought blocking and minimal verbal response) Fund of Knowledge: Inadequate Attention and Concentration: Easily Distracted Memory: Impaired Mood: Sad, Anxious Affect: Flat Thought Process & Associations: Loose associations Thought Content: Bizarre thinking, Hallucinations, Thought blocking, Delusional Hallucination Type: Auditory (acknowledging threatening voices) Delusion Type: Bizarre (gone today), Paranoid Suicidal Ideation: No Suicidal Plan: No Suicidal Intention: No Homicidal Ideation: No Homicidal Plan: No Homicidal Intention: No Insight: Poor Judgment: Poor Results Vitals/IOs Vital Signs Date Time Temp Pulse Resp B/P (MAP) Pulse Ox O2 Delivery O2 Flow Rate FiO2 01/31/17 09:09 77 121/80 (94) 01/31/17 05:57 97.6 17 97 Intake and Output 01/31/17 01/31/17 02/01/17 08:00 16:00 00:00 Intake Total 240 ml Balance 240 ml Assessment & Plan Problem List: (1) Schizoaffective disorder, depressive type ICD Codes: F25.1 - Schizoaffective disorder, depressive type Assessment & Plan Estimated LOS: days patient psychotic acknowledging auditory hallucinations of a threatening nature will increase a.m. Abilify to 15 mg Justification for Cont. Inpt. At this time patient will decompensate and placed a lower level of care Discharge Planning [place] return to his own apartment Request HC Surrog/Guard Advoc?: Yes Jon Donato MD Jan 31, 2017 11:28
--- NOTE | 2017-01-31 14:02 | HHI.PR ---
Subjective Remarks Follow up on patient with HTN, jaw swelling. Patient seen and examined. Patient denies any complaints of pain or swelling in the mouth. He denies any fever or chills. Denies any chest pain or dyspnea. Denies any cough. Denies any dizziness or lightheadedness with standing. Objective Vitals Vital Signs Date Time Temp Pulse Resp B/P (MAP) Pulse Ox O2 Delivery O2 Flow Rate FiO2 01/31/17 09:09 77 121/80 (94) 01/31/17 05:57 97.6 64 17 104/57 (73) 97 01/30/17 18:39 98.7 66 18 111/65 (80) 98 I/O 01/30/17 01/30/17 01/30/17 01/31/17 01/31/17 01/31/17 07:00 15:00 23:00 07:00 15:00 23:00 Intake Total 150 ml 240 ml Balance 150 ml 240 ml Intake Oral 150 ml 240 ml Result Diagram: 01/29/17 1249 Imaging Current Medications Medications (Trade) Dose Ordered Sig/Sanna Route Start Time Stop Time Status Last Admin (Benadryl) 50 mg HS PRN PO 01/24/17 15:30 (Tylenol) 650 mg Q4H PRN PO 01/24/17 15:30 01/30/17 12:04 (Milk Of Magnesia Liq) 30 ml DAILY PRN PO 01/24/17 15:30 (Mag-Al Plus Susp Liq) 30 ml Q6H PRN PO 01/24/17 15:30 (Depakote Er) 1,000 mg DAILY PO 01/24/17 15:30 01/31/17 09:00 (Glucophage) 1,000 mg BIDPC PO 01/24/17 18:00 Future Hold 01/25/17 18:08 (Pravachol) 40 mg DAILY PO 01/25/17 09:00 01/31/17 09:26 (Januvia) 50 mg DAILY PO 01/25/17 09:00 Future Hold 01/25/17 09:01 (Detrol La) 2 mg DAILY PO 01/25/17 09:00 01/31/17 09:26 (SEROquel) 400 mg HS PO 01/24/17 21:00 01/30/17 21:21 (D50w (Vial) Inj) 50 ml UNSCH PRN IV PUSH 01/25/17 08:00 (NovoLOG SUPPLEMENTAL SCALE) 1 ACHS SLIDING SCALE SQ 01/25/17 08:00 01/30/17 11:19 (Vitamin D3) 1,000 units DAILY PO 01/26/17 09:00 01/31/17 09:26 (Duoneb Neb) 1 ampule Q2HR NEB PRN NEB 01/26/17 11:30 (Cordarone) 200 mg DAILY PO 01/27/17 09:00 01/31/17 09:26 (Ecotrin Ec) 81 mg DAILY PO 01/27/17 09:00 01/31/17 09:26 (Toprol Xl) 50 mg DAILY PO 01/29/17 09:00 01/31/17 09:26 (Heparin Inj) 5,000 units Q12HR SQ 01/29/17 21:00 01/31/17 09:00 (Veetids) 500 mg Q8HR PO 01/30/17 15:30 01/31/17 13:48 (Abilify) 15 mg DAILY PO 02/01/17 09:00 Objective Remarks GENERAL: This is a thin, elderly male patient, in no apparent distress. Awake and alert. Hard of hearing. Lying in bed. SKIN: Warm and dry. HEAD: Atraumatic. Normocephalic. EYES: Extraocular motions intact. No scleral icterus. No injection or drainage. ENT: Nose without bleeding or purulent drainage. Airway patent. Very minimal swelling over right lower jaw. No tenderness to palpation. NECK: Trachea midline. CARDIOVASCULAR: Regular rate and rhythm without murmurs, gallops, or rubs. RESPIRATORY: Fair air entry bilaterally. No wheezes, rales, or rhonchi. GASTROINTESTINAL: Abdomen soft, non-tender, nondistended. No hepato-splenomegaly , or palpable masses. No guarding. MUSCULOSKELETAL: Extremities without clubbing, cyanosis, or edema. No calf tenderness. NEUROLOGICAL: Awake and alert. Able to move all extremities spontaneously. No focal neurologic findings appreciated. Normal speech. PSYCHIATRIC: Calm and pleasant. Cooperative. Flat affect. Medications and IVs Current Medications Medications (Trade) Dose Ordered Sig/Sanna Route Start Time Stop Time Status Last Admin (Benadryl) 50 mg HS PRN PO 01/24/17 15:30 (Tylenol) 650 mg Q4H PRN PO 01/24/17 15:30 01/30/17 12:04 (Milk Of Magnesia Liq) 30 ml DAILY PRN PO 01/24/17 15:30 (Mag-Al Plus Susp Liq) 30 ml Q6H PRN PO 01/24/17 15:30 (Depakote Er) 1,000 mg DAILY PO 01/24/17 15:30 01/31/17 09:00 (Glucophage) 1,000 mg BIDPC PO 01/24/17 18:00 Future Hold 01/25/17 18:08 (Pravachol) 40 mg DAILY PO 01/25/17 09:00 01/31/17 09:26 (Januvia) 50 mg DAILY PO 01/25/17 09:00 Future Hold 01/25/17 09:01 (Detrol La) 2 mg DAILY PO 01/25/17 09:00 01/31/17 09:26 (SEROquel) 400 mg HS PO 01/24/17 21:00 01/30/17 21:21 (D50w (Vial) Inj) 50 ml UNSCH PRN IV PUSH 01/25/17 08:00 (NovoLOG SUPPLEMENTAL SCALE) 1 ACHS SLIDING SCALE SQ 01/25/17 08:00 01/30/17 11:19 (Vitamin D3) 1,000 units DAILY PO 01/26/17 09:00 01/31/17 09:26 (Duoneb Neb) 1 ampule Q2HR NEB PRN NEB 01/26/17 11:30 (Cordarone) 200 mg DAILY PO 01/27/17 09:00 01/31/17 09:26 (Ecotrin Ec) 81 mg DAILY PO 01/27/17 09:00 01/31/17 09:26 (Toprol Xl) 50 mg DAILY PO 01/29/17 09:00 01/31/17 09:26 (Heparin Inj) 5,000 units Q12HR SQ 01/29/17 21:00 01/31/17 09:00 (Veetids) 500 mg Q8HR PO 01/30/17 15:30 01/31/17 13:48 (Abilify) 15 mg DAILY PO 02/01/17 09:00 A/P Assessment and Plan 66-year-old male with a past medical history significant for atrial fibrillation status post ablation 01/28/16, hypertension, diabetes, dyslipidemia , seizure disorder and bipolar disorder, schizoaffective disorder who is admitted to inpatient psychiatry under [employer] act for visual and auditory hallucinations concerning the devil and believing the devil was in his chest who has been asked to be seen in consultation by the medicine team for medical management. Schizoaffective disorder Bipolar disorder Psychosis with auditory and visual hallucinations, admitted under [place] act - Management per psychiatric team - continue with PT. Wheeled walker ordered per PT recommendations. PT at rehab. Questionable jaw swelling - very minimal swelling/unimpressive - Patient with no complaints of pain or tenderness - continue on PCN. Stop date entered into computer. - Follow up with dentist as outpatient Hypertension - episode of hypotension, symptomatic, suspect medication side effect. Improved. Orthostatics BP measurements negative but BP does drop with standing. Recommend treating standing BP measurements only. - BP imrpoved. Continue patient on metoprolol XL 50mg daily with parameters - SHERICE hose on prior to standing. Discussed with patient slow transitions, use of SHERICE hose. - encourage fluids Atrial fibrillation - rate controlled - s/p ablation 01/28/16 - continue on patient on Amiodarone dose 200mg daily and metoprolol - ASA 81mg daily - [id number] score 3. Patient previously on Eliquis but took himself off. Patient refusing to resume anticoagulation at this time. 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 - continue to monitor HR DM - diabetic heart healthy diet - HgbA1c 6.0 - Blood sugars have consistently been running low - Continue to hold home dose of Januvia and Metformin. Discontinue Accu- Cheks and insulin sliding scale. Suspect COPD Ongoing tobaccoism - discussed importance of cessation. Patient offered nicotine patch but declined. - Duonebs as needed - continue to monitor respiratory status Seizure d/o - continue patient on Depakote ER 1000mg daily - no seizure activity reported Dyslipidemia - continue patient on home dose of statin therapy Vitamin D deficiency - Vitamin D level 29.0. Started on po vitamin D supplementation. Continue. - patient will need to follow up with PCP as outpatient DVT prophylaxis - patient is ambulatory Discussed with patient, nursing staff and Dr. Calvo Patient is stable from hospitalist standpoint. Will sign off. Please reconsult if needed. [place]ota,Wendy PA Jan 31, 2017 14:02
--- NOTE | 2017-01-31 15:47 | PD.TTN ---
Patient Problems 1. Discharge planning 2. Medication compliance 3. Knowledge deficit 4. Lack of coping skills Progress Toward Goals Provider Present: Dr. Wicho Donato Provider Input: Dr. Donato's treatment team met to discuss patient's treatment plan, medication, and discharge plan. Patient is new will access patient. Patient meets criteria 01/26/17 Patient is doing better will be discharged to [facility]. 01/31/17 Patient's medication will be increased. Patient presents remarkedly delayed. Patient continues to have thought blocking . Patient does state at times he his hearing voices to harm himself. Nurse(s) Input: Patient's nurse Shanon reports patient is delusional, suicidal with no plan, medication compliant 01/26/17 Patient's nurse Gibson reports patient is doing well. Behaviors controlled, able to be redirected. 01/31/17 Patient's nurse Malini reports patient is seclusive, withdrawn, flat responding to internal simulation. Delay with thoughts blocking, reports hearing voices. Psychiatric Counselors Present: Ladonna Gray [facility] Psych Therapist Input: Patient presents sad, depressed, seclusive, affect blunted. Patient states he feels suicidal, but denies homicidal.. Patient made fair eye contact. Patient's speech is clear, and pressured. Patient at this time meets criteria. 01/26/17 Patient doing well. Patient denies suicidal and homicidal ideation. patient presents pleasant, cooperative, childlike, affect appropriate. Patient's speech is clear and organized. Patient will be discharged to her [facility]. 01/31/17 Patient contines to present seculsive, childlike, internally stimulated, affect flat. Patient's speech is low, and delayed. Patient continues to feel suicidal not homicidal. Patient continues to met criteria. Patient is eating taking his medication and eating ok. Group Spec/RT/OT/PATRICK Present: Silvina Morgan, OLIVER, DARNELL Perez Group Spec/RT/OT/PATRICK Input: Patient does not attend groups, seclusive to room. 01/26/17 Patient progressed with participation. Attends most groups appropriately, childlike, easily redirectable 01/31/17 Patient attends selective groups activities but needs encouragement to do so Ladonna Gray [facility] Jan 31, 2017 15:47
[2017-01-31] MEDS: QUEtiapine FUMARATE 200 MG TAB PO SCH (21:00)
[2017-02-01] MEDS: PENICILLIN V POTASSIUM 500 MG TAB PO SCH ×3 (06:18→21:00)
[2017-02-01 06:20] VITALS: BP 109/56; PULSE 64; RESP 17; TEMP 98.1; O2SAT 98
[2017-02-01] MEDS: ASPIRIN EC 81 MG TABEC PO SCH (08:20)
[2017-02-01] MEDS: CHOLECALCIFEROL (VIT D3) 1000 UNIT TAB PO SCH (08:20)
[2017-02-01] MEDS: PRAVASTATIN SOD 40 MG TAB PO SCH (08:20)
[2017-02-01] MEDS: TOLTERODINE TARTRATE 2 MG CAP LA PO SCH (08:20)
[2017-02-01] MEDS: HEPARIN SODIUM - SQ 10,000 UNITS/ML VIAL SQ SCH ×2 (08:20→20:53)
[2017-02-01] MEDS: DIVALPROEX SODIUM E.R. 500 MG TAB PO SCH (08:20)
[2017-02-01] MEDS: METOPROLOL SUCCINATE 50 MG EXTENDED RELEASE TAB PO SCH (08:20)
[2017-02-01] MEDS: ARIPiprazole 15 MG TAB PO SCH (08:20)
[2017-02-01] MEDS: AMIODARONE 200 MG TAB PO SCH (08:20)
--- NOTE | 2017-02-01 11:32 | HHI.PYPN ---
Subjective Remarks Patient seen in his room with nurse Misty, chart reviewed, patient compliant medications. Patient somewhat more alert today now he denies suicidality homicidality, he denies voices or visions. He continues somewhat vague and ambivalence about placement issues. I did discuss possible [facility] placement but advised him that they would take his check and give him atenolol months. He became somewhat vague about wanting to do this. Continue working with them. Improvement would be the best placement point in time Review of Systems Except as stated in HPI: all other systems reviewed are Neg Mental Status Examination Appearance: Disheveled Consciousness: Highly Distractible Orientation: Person Motor Activity: Abnormal gait Speech: Hesitant, Other (marked thought blocking bordering on selectively mute) Language: Other (difficult to ascertain due to patient's thought blocking and minimal verbal response) Fund of Knowledge: Inadequate Attention and Concentration: Easily Distracted Memory: Impaired Mood: Sad, Anxious Affect: Flat Thought Process & Associations: Loose associations Thought Content: Bizarre thinking, Hallucinations (denies voices today), Thought blocking (somewhat improved), Delusional Hallucination Type: Auditory (denies voices today) Delusion Type: Bizarre (improved), Paranoid Suicidal Ideation: No Suicidal Plan: No Suicidal Intention: No Homicidal Ideation: No Homicidal Plan: No Homicidal Intention: No Insight: Poor Judgment: Poor Results Vitals/IOs Vital Signs Date Time Temp Pulse Resp B/P (MAP) Pulse Ox O2 Delivery O2 Flow Rate FiO2 02/01/17 06:20 98.1 64 17 109/56 (73) 98 Assessment & Plan Problem List: (1) Schizoaffective disorder, depressive type ICD Codes: F25.1 - Schizoaffective disorder, depressive type Assessment & Plan Estimated LOS: days patient psychosis appears to be softening somewhat, his affect is slightly improved but slightly improved eye contact. We discussed possible [facility] placement. He shown some ambivalence related to this perhaps related to the fact that they take his check and give him a small allowance Justification for Cont. Inpt. At this time patient for decompensated placed on the lower level of care Discharge Planning Somewhat ambiguous at this time would recommend [facility] placement Request HC Surrog/Guard Advoc?: Yes Jon Donato MD Feb 01, 2017 11:32
[2017-02-01 18:29] VITALS: BP 113/68; PULSE 73; RESP 18; TEMP 97.9; O2SAT 98
[2017-02-01] MEDS: QUEtiapine FUMARATE 200 MG TAB PO SCH (20:52)
[2017-02-02] MEDS: PENICILLIN V POTASSIUM 500 MG TAB PO SCH ×3 (05:57→21:32)
[2017-02-02 06:11] VITALS: BP 101/55; PULSE 62; RESP 14; TEMP 97.5; O2SAT 99
[2017-02-02] MEDS: PRAVASTATIN SOD 40 MG TAB PO SCH (10:04)
[2017-02-02] MEDS: DIVALPROEX SODIUM E.R. 500 MG TAB PO SCH (10:04)
[2017-02-02] MEDS: ARIPiprazole 15 MG TAB PO SCH (10:04)
[2017-02-02] MEDS: CHOLECALCIFEROL (VIT D3) 1000 UNIT TAB PO SCH (10:04)
[2017-02-02] MEDS: METOPROLOL SUCCINATE 50 MG EXTENDED RELEASE TAB PO SCH (10:04)
[2017-02-02] MEDS: ASPIRIN EC 81 MG TABEC PO SCH (10:05)
[2017-02-02] MEDS: AMIODARONE 200 MG TAB PO SCH (10:05)
[2017-02-02] MEDS: TOLTERODINE TARTRATE 2 MG CAP LA PO SCH (10:05)
[2017-02-02] MEDS: HEPARIN SODIUM - SQ 10,000 UNITS/ML VIAL SQ SCH ×2 (10:06→21:55)
--- NOTE | 2017-02-02 13:52 | HHI.PYPN ---
Subjective Remarks Patient seen in room with nurse Ana, chart reviewed, patient compliant medications. Patient calm cooperative with me. He does acknowledge continued auditory hallucinations of a threatening nature. We also discussed placement issues. He states the room that he was renting prior to admission is no longer available for him. It appears she is not willing to consider an [facility] placement. Increase a.m. Abilify to 20 mg. Continue treatment Review of Systems Except as stated in HPI: all other systems reviewed are Neg Mental Status Examination Appearance: Disheveled Consciousness: Highly Distractible Orientation: Person Motor Activity: Abnormal gait Speech: Hesitant, Other (marked thought blocking bordering on selectively mute) Language: Other (difficult to ascertain due to patient's thought blocking and minimal verbal response) Fund of Knowledge: Inadequate Attention and Concentration: Easily Distracted Memory: Impaired Mood: Sad, Anxious Affect: Flat Thought Process & Associations: Loose associations Thought Content: Bizarre thinking, Hallucinations (denies voices today), Thought blocking (somewhat improved), Delusional Hallucination Type: Auditory (states voices are persisting and somewhat threatening) Delusion Type: Bizarre (improved), Paranoid Suicidal Ideation: No Suicidal Plan: No Suicidal Intention: No Homicidal Ideation: No Homicidal Plan: No Homicidal Intention: No Insight: Poor Judgment: Poor Results Vitals/IOs Vital Signs Date Time Temp Pulse Resp B/P (MAP) Pulse Ox O2 Delivery O2 Flow Rate FiO2 02/02/17 06:11 97.5 62 14 101/55 (70) 99 Assessment & Plan Problem List: (1) Schizoaffective disorder, depressive type ICD Codes: F25.1 - Schizoaffective disorder, depressive type Assessment & Plan Estimated LOS: days patient's mood appears to be slightly stabilizing though the psychosis the auditory hallucinations persist. See medication adjustment above Continue working on placement issues also Justification for Cont. Inpt. This time patient will decompensate the placed in a lower level of care Discharge Planning Patient no appears willing to discuss [facility] Request HC Surrog/Guard Advoc?: Yes Jon Donato MD Feb 02, 2017 13:52
--- NOTE | 2017-02-02 14:09 | PD.TTN ---
Patient Problems 1. Discharge planning 2. Medication compliance 3. Knowledge deficit 4. Lack of coping skills Progress Toward Goals Provider Present: Dr. Wicho Donato Provider Input: Dr. Donato's treatment team met to discuss patient's treatment plan, medication, and discharge plan. Patient is new will access patient. Patient meets criteria 01/26/17 Patient is doing better will be discharged to skilled nursing. 01/31/17 Patient's medication will be increased. Patient presents remarkedly delayed. Patient continues to have thought blocking . Patient does state at times he his hearing voices to harm himself. 02/02/17 Patient meets criteria, continue treatment Nurse(s) Input: Patient's nurse Shanon reports patient is delusional, suicidal with no plan, medication compliant 01/26/17 Patient's nurse Gibson reports patient is doing well. Behaviors controlled, able to be redirected. 01/31/17 Patient's nurse Malini reports patient is seclusive, withdrawn, flat responding to internal simulation. Delay with thoughts blocking, reports hearing voices. 02/02/17 Patient's nurse Ana reports patient is pleasant, patient is aware of medication regiment, resting peacefully, has underlying anxiety Psychiatric Counselors Present: Ladonna Gray [facility] Psych Therapist Input: Patient presents sad, depressed, seclusive, affect blunted. Patient states he feels suicidal, but denies homicidal.. Patient made fair eye contact. Patient's speech is clear, and pressured. Patient at this time meets criteria. 01/26/17 Patient doing well. Patient denies suicidal and homicidal ideation. patient presents pleasant, cooperative, childlike, affect appropriate. Patient's speech is clear and organized. Patient will be discharged to her skilled nursing. 01/31/17 Patient contines to present seculsive, childlike, internally stimulated, affect flat. Patient's speech is low, and delayed. Patient continues to feel suicidal not homicidal. Patient continues to met criteria. Patient is eating taking his medication and eating ok. 02/02/17 Patient reports feeling better. Denies any suicidal and homicidal ideation. Patient reports not hearing any voices or having any delusional thoughts. Patient is wanting to be placed in an [facility]. Patient continues to present seclusive, guarded. cooperative, affect flat. Group Spec/RT/OT/PATRICK Present: Silvina Morgan, GPS, Yola Kelly, PATRICK Group Spec/RT/OT/PATRICK Input: Patient does not attend groups, seclusive to room. 01/26/17 Patient progressed with participation. Attends most groups appropriately, childlike, easily redirectable 01/31/17 Patient attends selective groups activities but needs encouragement to do so 02/02/17 Patient does not attend groups Ladonna Gray [facility] Feb 02, 2017 14:09
[2017-02-02 18:57] VITALS: BP 104/55; PULSE 65; RESP 17; TEMP 98.8; O2SAT 96
[2017-02-02] MEDS: QUEtiapine FUMARATE 200 MG TAB PO SCH (21:32)
[2017-02-03] MEDS: PENICILLIN V POTASSIUM 500 MG TAB PO SCH (05:45)
[2017-02-03 05:54] VITALS: BP 131/64; PULSE 72; RESP 16; TEMP 98; O2SAT 100
[2017-02-03] MEDS: TOLTERODINE TARTRATE 2 MG CAP LA PO SCH (08:29)
[2017-02-03] MEDS: DIVALPROEX SODIUM E.R. 500 MG TAB PO SCH (08:29)
[2017-02-03] MEDS: AMIODARONE 200 MG TAB PO SCH (08:29)
[2017-02-03] MEDS: PRAVASTATIN SOD 40 MG TAB PO SCH (08:30)
[2017-02-03] MEDS: ASPIRIN EC 81 MG TABEC PO SCH (08:30)
[2017-02-03] MEDS: CHOLECALCIFEROL (VIT D3) 1000 UNIT TAB PO SCH (08:30)
[2017-02-03] MEDS: METOPROLOL SUCCINATE 50 MG EXTENDED RELEASE TAB PO SCH (08:30)
[2017-02-03] MEDS: HEPARIN SODIUM - SQ 10,000 UNITS/ML VIAL SQ SCH (08:30)
[2017-02-03] MEDS ORDERED: ARIP1TAB14 PO (12:12)
[2017-02-03] MEDS ORDERED: DIVA500T3 PO (12:12)
[2017-02-03] MEDS ORDERED: PENI500T PO (12:12)
[2017-02-03] MEDS ORDERED: QUET400T PO (12:12)
[2017-02-03] MEDS ORDERED: CHOL1000 PO (12:12)
[2017-02-03] MEDS ORDERED: METF1000 PO (12:12)
[2017-02-03] MEDS ORDERED: DETR2CAP PO (12:12)
[2017-02-03] MEDS ORDERED: SITA50 PO (12:12)
[2017-02-03] MEDS ORDERED: AMIO200T PO (12:12)
[2017-02-03] MEDS ORDERED: PRAV40TA2 PO (12:12)
[2017-02-03] MEDS ORDERED: ECASA81 PO (12:12)
--- NOTE | 2017-02-03 12:21 | HHI.DS ---
Psychiatry Discharge Summary Inpatient Psychiatric care?: Yes Advance Directive: No Reason Not Provided: Due to Patient Condition Mental Health AdvanceDirective: No Health Care Proxy: No Admission Admission Date Jan 24, 2017 at 15:19 Admission Diagnosis: (1) Schizoaffective disorder, depressive type ICD Code: F25.1 - Schizoaffective disorder, depressive type Brief History 66-year-old male presents under a Epps act for reported auditory hallucinations , visual hallucinations, delusional thinking, multiple medical problems and inability to care for self. According to the Epps act, the patient has been hearing voices and feels the devil is in his chest. He describes both auditory and visual hallucinations, although is disorganized, currently responding to internal stimuli, and therefore is a poor historian. He was Epps acted by one of our own emergency department attending physicians. Upon interview, the patient admits to being very anxious. He has a difficult time answering questions because he is distracted by at least auditory hallucinations if not also visual hallucinations. He admits to having the devil inside of him. He admits to seeing things although he cannot or will not describe what he sees. He admits to auditory hallucinations, although he is again unable to describe details of what he hears. He continues to exhibit loose associations. He is able to name some of his psychotropic and nonpsychotropic medicines and admits that he has not been taking his medicines as prescribed. He has a history of multiple medical problems and therefore his lack of self-care is imminently jeopardizing his physical health. He is unable to answer questions about suicide and homicide at this time. His toxicology screen is noted to be negative. Tobacco Use In Past 30 Days: 5 or More Cigarettes/Day Alcohol Use: 2-3 Times Per Week Hospital Course Patient's hospital course was noted for patients initial isolation is suicidality homicidality voices or visions gradually tapered. He now is able contracted to no harm. He does denies suicidality and denies voices. Is also shown willingness to be compliant with his medications to attempt to maintain absolute sobriety. Follow-up mental health issues. Is also willing to go to [facility] at the present time. A bed has been found for him at the [facility]. Patient be discharged to that facility today Rx times a month and follow through Roberto act. Also strongly referral to Results Blood Pressure 131 / 64 Vital Signs Date Time Temp Pulse Resp B/P (MAP) Pulse Ox O2 Delivery O2 Flow Rate FiO2 02/03/17 05:54 98.0 72 16 131/64 (86) 100 Laboratory Results Test 01/24/17 19:24 01/25/17 11:35 Valproic Acid (Depakene) Level 69 MCG/ML (50-100) Cholesterol Level 128 MG/DL (120-200) HDL Cholesterol 59.8 MG/DL (40.0-60.0) Hemoglobin A1c 6.0 % (4.3-6.0) LDL Cholesterol 55 MG/DL (0-99) Triglycerides Level 66 MG/DL (42-150) Summary of Procedures None done Imaging Last Impressions Chest X-Ray 01/23/17 0000 Signed Impressions: Service Date/Time: Monday, January 23, 2017 21:50 - CONCLUSION: No acute disease. Jon Pablo MD Pending results at discharge: No Medications # of Antipsychotic meds at D/C: 2 Appropriate >1 Antipsych meds?: 2 (would recommend outpatient clinician consider gradually tapering of Abilify as the patient recovers and stabilizes) Approp Antipsych med options 1 - Minimum of three failed multiple trials of monotherapy. 2 - Documented plan to taper to monotherapy due to previous use of multiple meds OR cross-taper in progress at D/C. 3 - Documentation of augmentation of Clozapine. 4 - Justification other than those listed in allowable values 1-3, document here : Discharge Discharge Date: Feb 03, 2017 Discharge Diagnosis: (1) Schizoaffective disorder, depressive type Diagnosis: Principal ICD Code: F25.1 - Schizoaffective disorder, depressive type Pt Condition on Discharge: Stable Discharge Disposition: [facility] Discharge Instructions Diet Instructions: As Tolerated, No Restrictions Activities you can perform: Regular-No Restrictions Scheduled Appointment: Roberto Power Discharge Time > 30 minutes Mental Status Examination Appearance: Disheveled Consciousness: Highly Distractible Orientation: Person Motor Activity: Abnormal gait Speech: Hesitant, Other (marked thought blocking bordering on selectively mute) Language: Other (difficult to ascertain due to patient's thought blocking and minimal verbal response) Fund of Knowledge: Inadequate Attention and Concentration: Easily Distracted Memory: Impaired Mood: Sad, Anxious Affect: Flat Thought Process & Associations: Loose associations Thought Content: Bizarre thinking, Hallucinations (denies voices today), Thought blocking (somewhat improved), Delusional Hallucination Type: Auditory (states voices are persisting and somewhat threatening) Delusion Type: Bizarre (improved), Paranoid Suicidal Ideation: No Suicidal Plan: No Suicidal Intention: No Homicidal Ideation: No Homicidal Plan: No Homicidal Intention: No Insight: Poor Judgment: Poor Discharge/Advance Care Plan Health Problems: (1) Schizoaffective disorder, depressive type Goals to promote your health * To prevent worsening of your condition and complications * To maintain your health at the optimal level Directions to meet your goals Take your medications as prescribed Follow your dietary instruction Follow activity as directed Keep your appointments as scheduled Take your immunizations and boosters as scheduled If your symptoms worsen call your PCP, if no PCP go to Urgent Care Center or Emergency Room For / questions related to your inpatient stay or results of tests pending at discharge, please contact Dr. Jon Donato at Smoking is Dangerous to Your Health. Avoid second hand smoking Jon Donato MD Feb 03, 2017 12:21
== END 2017-02-03 16:10 | DRG 885 ==
LOC: NEPC 20:02 → NEDA 01-24 15:19 → H260 01-24 16:48
PROVIDERS: ADMIT Psychiatry & Neurology Psychiatry; ATTEND Psychiatry & Neurology Psychiatry
DX: F25.1 Schizoaffective disorder, depressive type (principal); I95.9 Hypotension, unspecified; I48.91 Unspecified atrial fibrillation; E11.9 Type 2 diabetes mellitus without complications; I10 Essential (primary) hypertension; F32.9 Major depressive disorder, single episode, unspecified; E78.5 Hyperlipidemia, unspecified; E55.9 Vitamin D deficiency, unspecified; F17.210 Nicotine dependence, cigarettes, uncomplicated; F41.9 Anxiety disorder, unspecified; H91.92 Unspecified hearing loss, left ear; Z79.84 Long term (current) use of oral hypoglycemic drugs; Z59.0 Homelessness
CPT/HCPCS: 71010; 80048; 80053; 80061; 80164; 80307; 81001; 82306; 82550; 82607; 82948; 83036; 83735; 84100; 84146; 84443; 84484; 85025; 93005; 94640; 94664; 96360; 96361; J1644; J1815; J2060; J7030